=== PATIENT | female | born 1990 | race Caucasian/White ===

== ENCOUNTER 2021-12-20 15:14 | Emergency (ER) | payer OTHER, SELFPAY ==
[2021-12-20 15:16] VITALS: BP 119/54; PULSE 119; RESP 16; TEMP 36.3; O2SAT 98
--- NOTE | 2021-12-20 15:34 | ED.FEMALEGU ---
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 Patient states that she noted a small amount of pink/light red blood on the toilet tissue after she wiped and in her underwear. Denies abdominal pain, fevers, syncope. Patient has had 2 ultrasounds to confirm IUP, most recently at the end of November. Her has been uncomplicated thus far she follows with Dr. Villanueva. Related Data Home Medications Medication Instructions Recorded Confirmed escitalopram oxalate 10 mg tablet 10 mg PO DAILY 10/13/21 11/10/21 (Lexapro) Allergies Allergy/AdvReac Type Severity Reaction Status Date / Time No Known Allergies Allergy Verified 12/20/21 15:19 Review of Systems Review of Systems: Gen: Denies fevers or chills Eyes: Denies eye pain or visual change ENT: Denies congestion Respiratory: Denies shortness of breath or cough CV: Denies chest pain or palpitations GI: Denies abdominal pain nausea, emesis or diarrhea : denies burning, urgency, frequency or hematuria Musculoskeletal: Denies back pain or muscle pain Neuro: Denies numbness, tingling, weakness or focal weakness Skin: Denies rash Except as documented, all other systems reviewed and negative [facility] Past Medical History Medical History Healthy adult Surgical History Surgical History No pertinent past surgical history Family History Family History Other Graves' disease Malignant tumor of ovary Social History Social History (Updated 10/13/21 @ 15:47 by Shannon Gonzalez MA) Smoking status: Current some day smoker Tobacco type: e-cigarettes/vaping Alcohol intake: never Substance use: never Substance use type: does not use 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 Gender identity (if verbalized by the patient): Female Sexual Orientation (if Verbalized by the Patient): Straight or Heterosexual Exam Narrative: Gen: Alert, oriented Eyes: EOMI, no icterus Pulm: Respirations even and unlabored, symmetric thorax expansion, no audible stridor or visible cyanosis CV: Regular rate per telemetry GI: No distension, no voluntary/involuntary guarding : Patient refusing pelvic exam Neuro: AOx4, moves all extremities without apparent difficulty or weakness, follows commands Skin: No jaundice, no visible bruising, rashes, lesions or wounds on exposed skin Psych: Normal mood/affect, insight/judgement good, adequate fund of knowledge, recent/remote memory intact Course Course Emergency Course: heart tones detected at 168 bpm, movement and heart tones detected on [id number]-im-nxid ultrasound at bedside Vital Signs Vital signs: Vital Signs Temperature 97.4 F L 12/20/21 15:16 Pulse Rate 119 H 12/20/21 15:16 Respiratory Rate 16 12/20/21 15:16 Blood Pressure 119/54 L 12/20/21 15:16 Pulse Oximetry 98 12/20/21 15:16 Oxygen Delivery Room Air 12/20/21 15:16 Temperature 97.4 F L 12/20/21 15:16 Pulse Rate 119 H 12/20/21 15:16 Respiratory Rate 16 12/20/21 15:16 Blood Pressure 119/54 L 12/20/21 15:16 Pulse Oximetry 98 12/20/21 15:16 Oxygen Delivery Room Air 12/20/21 15:16 MDM - Female Genitourinary MDM Narrative Medical decision making narrative: 31-year-old female who is currently 18 weeks here for evaluation of vaginal spotting for the past 2 days. Patient is tachycardic, likely due to anxiety, vital signs otherwise normal. Patient has had an US to confirm single IUP; low concern for ectopic. Patient states she only presented to hear heart tones
--- NOTE | 2021-12-20 15:43 | PC.NURSE ---
OB NOTIFIED OF NEED FOR TOCO MONITORING AND WILL COME OVER SARA
--- NOTE | 2021-12-20 16:37 | PC.NURSE ---
patient refuses labs and pelvic exam
== END 2021-12-20 17:06 | disposition home or self-care (01) ==
PROVIDERS: Emergency Provider Emergency Medicine; PCP Physician Assistant
DX: O20.9 Hemorrhage in early pregnancy, unspecified (principal); O99.332 Smoking (tobacco) complicating pregnancy, second trimester; F17.290 Nicotine dependence, other tobacco product, uncomplicated; Z3A.18 18 weeks gestation of pregnancy
CPT/HCPCS: 99284

== ENCOUNTER 2022-02-02 15:03 | Outpatient (CLI) | payer OTHER, SELFPAY ==
[2022-02-02 15:24] LABS: Basophils Absolute Auto 0.1 K/mm3 (0.0-0.1); Basophils Percent Auto 0.4 % (0.2-1.2); Eosinophils Absolute Auto 0.1 K/mm3 (0-0.3); Eosinophils Percent Auto 0.6 % (0-4.4); Hematocrit 34.1 % (37.0-47.0); Hemoglobin 10.8 g/dL (12.0-15.0); Immature Granulocyte Absolute 0.54 K/mm3 (0.00-0.031); Immature Granulocyte Percent A 4.3 % (0-0.5); Lymphocytes Absolute Auto 1.49 K/mm3 (0.9-3.2); Lymphocytes Percent Auto 11.7 % (18.3-44.2); Mean Corpuscular HGB Conc 31.7 g/dl (32-36); Mean Corpuscular Hemoglobin 30.8 pg (26-34); Mean Corpuscular Volume 97.2 fl (80-100); Mean Platelet Volume 10.3 fl (7.4-10.4); Monocytes Absolute Auto 0.8 K/mm3 (0.1-0.6); Monocytes Percent Auto 6.1 % (2.6-8.5); Neutrophils Absolute Auto 9.8 K/mm3 (1.3-6.7); Neutrophils Percent Auto 76.9 % (45.5-73.1); Platelet Count Result 261 k/mm3 (150-375); Red Blood Count 3.51 M/mm3 (4.2-5.4); Red Cell Distribution Width 14.9 % (11.5-14.5); White Blood Count 12.7 K/mm3 (4.5-10.0)
[2022-02-02 15:51] LABS: Iron 79 ug/dL (37-170)
[2022-02-02 16:00] LABS: Percent Iron Saturation 16 % (20-50)
== END 2022-02-02 15:04 | disposition home or self-care (01) ==
LOC: ANHLAB 15:04
PROVIDERS: PCP Physician Assistant; Visit Provider Obstetrics & Gynecology
DX: R42 Dizziness and giddiness (principal)
CPT/HCPCS: 36415; 82728; 83540; 83550; 85025

== ENCOUNTER 2022-03-05 10:46 | Outpatient (CLI) | payer OTHER, SELFPAY ==
[2022-03-05 12:27] LABS: Basophils Absolute Auto 0.1 K/mm3 (0.0-0.1); Basophils Percent Auto 0.4 % (0.2-1.2); Eosinophils Absolute Auto 0.1 K/mm3 (0-0.3); Eosinophils Percent Auto 0.7 % (0-4.4); Hematocrit 32.6 % (37.0-47.0); Hemoglobin 10.5 g/dL (12.0-15.0); Immature Granulocyte Absolute 0.76 K/mm3 (0.00-0.031); Immature Granulocyte Percent A 5.6 % (0-0.5); Lymphocytes Absolute Auto 1.33 K/mm3 (0.9-3.2); Lymphocytes Percent Auto 9.7 % (18.3-44.2); Mean Corpuscular HGB Conc 32.2 g/dl (32-36); Mean Corpuscular Hemoglobin 31.3 pg (26-34); Mean Corpuscular Volume 97.3 fl (80-100); Mean Platelet Volume 10.5 fl (7.4-10.4); Monocytes Absolute Auto 0.6 K/mm3 (0.1-0.6); Monocytes Percent Auto 4.6 % (2.6-8.5); Neutrophils Absolute Auto 10.8 K/mm3 (1.3-6.7); Platelet Count Result 240 k/mm3 (150-375); Red Blood Count 3.35 M/mm3 (4.2-5.4); Red Cell Distribution Width 15.4 % (11.5-14.5); White Blood Count 13.7 K/mm3 (4.5-10.0)
[2022-03-05 12:37] LABS: Glucose 1 Hour PP 50gm Dose 181 mg/dL
[2022-03-05 13:15] LABS: HIV 1/2 Ab P24 Ag Result Negative (Negative)
[2022-03-05 13:43] LABS: Rubella IgG Antibody 16.2 IU/ML
== END 2022-03-05 10:47 | disposition home or self-care (01) ==
LOC: ANHLAB 10:49
PROVIDERS: PCP Physician Assistant; Visit Provider Obstetrics & Gynecology
DX: Z34.90 Encounter for supervision of normal pregnancy, unspecified, unspecified trimester (principal); N94.89 Other specified conditions associated with female genital organs and menstrual cycle; Z3A.00 Weeks of gestation of pregnancy not specified
CPT/HCPCS: 36415; 82947; 85025; 86703; 86762; 86787; 87086; 87088; G0432

== ENCOUNTER 2022-03-10 08:01 | Outpatient (CLI) | payer OTHER, SELFPAY ==
[2022-03-10 08:35] LABS: Glucose Fasting Gestational 100 mg/dL (>/=95)
[2022-03-10 10:13] LABS: Glucose 1 Hour Gest 206 mg/dL (>/=180)
[2022-03-10 13:11] LABS: Glucose 2 Hour Gest 180 mg/dL (>/= 155)
[2022-03-10 13:19] LABS: Glucose 3 Hour Gest 139 mg/dL (>/=140)
== END 2022-03-10 08:02 | disposition home or self-care (01) ==
LOC: ANHLAB 08:03
PROVIDERS: PCP Physician Assistant; Visit Provider Obstetrics & Gynecology
DX: R73.09 Other abnormal glucose (principal)
CPT/HCPCS: 36415; 82951; 82952

== ENCOUNTER 2022-04-24 11:38 | Observation (INO) | payer OTHER, SELFPAY ==
[2022-04-24] VITALS (33 sets, daily range): BP systolic 114; BP diastolic 79; PULSE 88–121; RESP 20; O2SAT 97–100; BMI 34.7
--- NOTE | 2022-04-24 12:30 | OBADM ---
This patient, Barbara Diggs, admitted to the OB room Labor/Delivery/Recovery 119 for observation. Patient/family oriented to hospital policies and general routines including ID bracelet, bed and alarms, visiting hours, pain management, procedures, bathroom and other care routines, personal items, smoking policy, room service/diet, and visiting hours. Patient/Family are encouraged to report perceived risks to care and to ask questions if they do not understand what they are told or what they should do.
--- NOTE | 2022-04-24 12:50 | PC.NURSE ---
Dr. Villanueva updated on reactive FHR tracing so far with change in baseline from 150's to 130's and frequent uterine irritability at 35 6/7 wks. states pt has polyhydramnios also. OK to let pt eat.
[2022-04-24 16:09] LABS: Add Urine Microscopic? YES; Appearance Urine Cloudy (Clear); Bacteria Urine 4+ /hpf; Bilirubin Urine Negative (Negative); Blood Urine Negative (Negative); Color Urine Yellow (Yellow); Glucose Urine UA Negative (Negative); Ketones Urine 2+ mg/dL (Negative); Leukocyte Esterase Ur Trace LEU/UL (Negative); Mucus Urine Rare /lpf; Nitrate Urine Negative (Negative); Protein Urine 1+ mg/dL (Negative); Specific Grav Ur 1.012 (1.001-1.035); Squamous Epithelial Cell Urine Rare /hpf (Few); Urobilinogen Urine Negative mg/dL (<2.0)
--- NOTE | 2022-04-27 12:28 | PM.OBTRLD ---
OB - Triage/Final Diagnosis Visit Information Comments/Additional reasons for admission: I have assessed the risk for this patient, Barbara Diggs, and determined that she would benefit from observation care. Evaluation Laboratory results: Laboratory Tests 04/24/22 15:55 Urine Color Yellow Urine Appearance Cloudy H Urine pH 6.0 Ur Specific [place] 1.012 Urine Protein 1+ H Urine Glucose (UA) Negative Urine Ketones 2+ H Ur Blood (Man) Negative Urine Nitrate Negative Urine Bilirubin Negative Urine Urobilinogen Negative Leukocyte Esterase Rfl Trace H Urine RBC 3-5 H Urine WBC 4-6 H Ur Squamous Epith Cells Rare Urine Bacteria 4+ H Urine Mucus Rare Final Diagnosis (1) heart deceleration: Status: Acute
== END 2022-04-24 16:33 | disposition home or self-care (01) ==
PROVIDERS: Admitting Provider Obstetrics & Gynecology; PCP Physician Assistant; Visit Provider Obstetrics & Gynecology
DX: O36.8390 Maternal care for abnormalities of the fetal heart rate or rhythm, unspecified trimester, not applicable or unspecified (principal); Z3A.00 Weeks of gestation of pregnancy not specified
CPT/HCPCS: 81001; G0378; G0379

== ENCOUNTER 2022-05-12 08:35 | Inpatient (IN) | payer OTHER, SELFPAY ==
[2022-05-12] VITALS (118 sets, daily range): BP systolic 59–139; BP diastolic 42–122; PULSE 72–154; TEMP 36.2–36.7; O2SAT 93–100; BMI 39.2
[2022-05-12 09:45] LABS: Basophils Percent Auto 0.4 % (0.2-1.2); Eosinophils Absolute Auto 0.1 K/mm3 (0-0.3); Eosinophils Percent Auto 0.7 % (0-4.4); Hematocrit 36.3 % (37.0-47.0); Hemoglobin 11.6 g/dL (12.0-15.0); Immature Granulocyte Absolute 0.43 K/mm3 (0.00-0.031); Immature Granulocyte Percent A 4.5 % (0-0.5); Lymphocytes Absolute Auto 1.27 K/mm3 (0.9-3.2); Lymphocytes Percent Auto 13.2 % (18.3-44.2); Mean Corpuscular Hemoglobin 28.4 pg (26-34); Mean Corpuscular Volume 88.8 fl (80-100); Mean Platelet Volume 12.1 fl (7.4-10.4); Monocytes Absolute Auto 0.6 K/mm3 (0.1-0.6); Neutrophils Absolute Auto 7.3 K/mm3 (1.3-6.7); Neutrophils Percent Auto 75.2 % (45.5-73.1); Nucleated Red Blood Cells Perc 0.2 % (0.0-0.2); Platelet Count Result 222 k/mm3 (150-375); Red Blood Count 4.09 M/mm3 (4.2-5.4); Red Cell Distribution Width 15.1 % (11.5-14.5); White Blood Count 9.7 K/mm3 (4.5-10.0)
--- NOTE | 2022-05-12 10:15 | LDADM ---
This patient, Barbara Diggs, was admitted to Labor/Delivery/Recovery 107 on 05/12/22 at 08:35. Plans for labor, pain management and were discussed with patient. Patient/family oriented to hospital policies and general routines including ID bracelet, bed and alarms, visiting hours, pain management, procedures, bathroom and other care routines, personal items, smoking policy, room service/diet and guest tray routines, infant security routines, and visiting hours. Patient/Family are encouraged to report perceived risks to care and to ask questions if they do not understand what they are told or what they should do. See OBIX for further documentation.
[2022-05-12] MEDS: miSOPROStol 25 MCG TABLET VAGINAL (10:41)
--- NOTE | 2022-05-12 12:00 | WPDOBADMIT ---
Obstetrics - Admit Note Admission Note: record reviewed. No pertinent additions to the history and/or any subsequent changes in the physical findings that are not consistent with the expected course of the were found. Additions to the history and/or subsequent changes in the physical findings follow. None. Lily is a 31yo @ 38.3wks admitted with SROM @ 0730, clear on 05/12/22 Her is complicated by: - Anxiety on lexapro - Hard of hearing -? COVID positive (on baby aspirin, serial ultrasound for growth) - A2GDM; on insulin, doing ANT w/ MFM - Mild polyhydramnios Cat 1 tracing on admission, irregular ctx's Cervix: /-3 grossly ruptured; clear Misoprostol 25mcg x1; if milagros too frequently, will then start pitocin augmentation GBS negative Anesthesia consult PRN pain Continuous monitoring; currently reassuring
[2022-05-12 14:19] LABS: Glucose Point of Care 90 mg/dl (65-105)
[2022-05-12] MEDS: LACTATED RINGERS 1,000 ML 125 ML IV CONT ×2 (15:03→17:07)
[2022-05-12] MEDS: OXYTOCIN 30 UNITS/NS 500 ML 30 UNITS/500 ML BAG IV CONT (15:03)
[2022-05-12 16:29] LABS: Rapid Plasma Reagin Non-Reactive (NonReactive)
[2022-05-12 22:31] LABS: Glucose Point of Care 78 mg/dl (65-105)
[2022-05-12 22:31] LABS: Glucose Point of Care 90 mg/dl (65-105)
[2022-05-12] MEDS: ONDANSETRON INJ 4 MG/2 ML VIAL IV PUSH ×2 (22:42)
[2022-05-13] VITALS (87 sets, daily range): BP systolic 90–164; BP diastolic 64–104; PULSE 53–188; RESP 16–20; TEMP 36.6–38.8; O2SAT 71–100
[2022-05-13 00:29] LABS: Glucose Point of Care 83 mg/dl (65-105)
[2022-05-13] MEDS: diphenhydrAMINE HCl INJ 50 MG/ML VIAL 25 MG IV PUSH (00:55)
[2022-05-13] MEDS: AMPICILLIN 2 GM/NS 100 ML 2 GM/100 ML BAG IVPB ×4 (01:31→20:33)
[2022-05-13] MEDS: METHYLERGONOVINE MALEATE 0.2 MG/ML VIAL (02:34)
[2022-05-13] MEDS: miSOPROStol 200 MCG TABLET 800 MCG (02:37)
--- NOTE | 2022-05-13 03:00 | P.PCNOB_ITS ---
OB - Delivery Note Procedure Delivery date: 05/13/22 Events: Gestational Diabetes, Polyhydramnios and Other (SROM) Delivery augmentation: Pitocin Delivery monitor: External FHT and External Uterine Route of delivery: Laceration Description: Perineal - 1st Degree Delivery repair: vicryl Specimen: Yes (placenta) Quantitative Blood Loss (ml): 450 Anesthesia type: Epidural Disposition: Floor Baby Date of : 05/13/22 Time of : 02:25 Weeks of gestation at delivery: 38 (.4) gender: Male Weight (pounds): 7 Weight (ounces): 2 presentation: compound (right hand by face) position: Right Occiput Anterior Placenta delivery description: Expressed Cord Vessel Description: 3 Vessels and Clamped/Cut Narrative: Barbara progressed to complete dilation with strong desire to push. She pushed for approximately 45 minutes with good maternal effort. She delivered the head over intact perineum. He was delivered compound with the right hand up by his face. He was immediately placed skin to skin but noted to have poor tone and color therefore the umbilical cord was immediately clamped and cut and he was taken by the pediatric nurse to the warmer. A segment of the cord was collected for cord gases. The remaining cord blood was collected for typing. With Pitocin running and gentle downward traction on the cord, the luz lacenta delivered without complications. Brisk bleeding was noted and bimanual massage revealed uterine atony. Methergine 0.2mg IM was given which resolved the atony. She was examined and a first-degree perineal laceration was noted. The laceration was repaired using 2-0 Vicryl in a [id number]-[id number] pattern. Minimal bleeding and good uterine tone remained. Misoprostol 800 mcg was placed rectally to further prevent atony. Sponge, lap, instrument, and needle counts were correct at the end the procedure. Apgars pending. AMG Delivery Billing Delivery Delivery: Delivery Charge
[2022-05-13] MEDS: OXYTOCIN 30 UNITS/NS 500 ML 30 UNITS/500 ML BAG 125 UNITS (03:23)
[2022-05-13] MEDS: IBUPROFEN 600 MG TABLET PO ×2 (03:56→23:51)
[2022-05-13] MEDS: WITCH HAZEL 40 PADS 1 PAD TOPICAL (04:50)
[2022-05-13] MEDS: BENZOCAINE 20% AER SPR (*SP) 56 GM CAN 1 SPRAY TOPICAL (04:50)
--- NOTE | 2022-05-13 05:46 | PC.NURSE ---
Patient transferred to post room #291 per wheelchair from labor and delivery. Support person present. Oriented to unit, room, information board, rooming in, admission packet and security measures. Patient verbalizes understanding.
[2022-05-13] MEDS: OXYTOCIN 30 UNITS/NS 500 ML 30 UNITS/500 ML BAG 125 UNITS IV CONT (06:40)
[2022-05-13 07:40] LABS: Alanine Aminotransferase 39 U/L (6-35); Alkaline Phosphatase 198 U/L (38-126); Anion Gap 12 mmol/L (8-16); Aspartate Amino Transferase 42 U/L (14-36); Bilirubin,Total 0.4 mg/dL (0.2-1.3); Blood Urea Nitrogen 14 mg/dL (7-17); Calcium 8.1 mg/dL (8.4-10.2); Carbon Dioxide 17 mmol/L (22-30); Chloride 104 mmol/L (98-107); Estimated Glomerular Filt Rate > 60; Glucose 123 mg/dL (65-110); Potassium 3.3 mmol/L (3.4-5.0); Sodium 133 mmol/L (137-145)
[2022-05-13] MEDS: DOCUSATE SODIUM 100 MG CAPSULE PO ×2 (08:17→16:55)
[2022-05-13] MEDS: MULTIVIT/MIN/PREN/FOL AC/IRON TABLET 1 TAB PO (08:17)
[2022-05-13] MEDS: ACETAMINOPHEN 325 MG TABLET 650 MG PO (08:17)
[2022-05-13] MEDS: PHARMACIST COMMUNICATION ORDER 1 EACH XX (08:39)
--- NOTE | 2022-05-13 13:51 | PC.NURSE ---
[id number] Introductions were made, then consulted with patient to assess needs related to preparing to feed her infant. Mother led the conversation with her?plans to feed?her infant. Mother's intent to feed ranges from bottle with formula, breast milk with a bottle, breast pumping for milk production, whatever works best and her?experience so far. Resources provided for inpatient and outpatient services using a resource guide and mom/baby guide. Mother voiced understanding of information and requests assistance with pumping. Breast pump provided due to separation from . Instructions given on cleaning, care, usage, that there should be no pain, pumping schedule for milk production, collection, and storage of human milk. Mother is encouraged to record pumping schedule on the feeding sheet. Patient was assessed for correct placement, flange size (given the smallest size we have 21 mm and encouraged mother to order a 19 mm as measurement indicates), to pump for comfort, no pain and nipple stretching/stimulation for adequate milk production every 3 hours (8 times in 24 hours) 1-2 times at night. Mother voiced understanding of the education shared along with mom and baby guide for additional resource information. Reported to the primary RN.
[2022-05-14 02:45] VITALS: BP 111/81; PULSE 70; RESP 16; TEMP 36.6
[2022-05-14] MEDS: AMPICILLIN 2 GM/NS 100 ML 2 GM/100 ML BAG IVPB (02:50)
[2022-05-14] MEDS: SIMETHICONE 80 MG TAB.CHEW PO (02:51)
[2022-05-14 05:30] LABS: Hematocrit 34.4 % (37.0-47.0); Hemoglobin 10.7 g/dL (12.0-15.0)
--- NOTE | 2022-05-14 07:44 | P.PNOB_ITS ---
OB - PN: Subj Subjective Date/time seen: 05/14/22 07:07 Narrative: PPD#1 Barbara reports doing well today. Her bleeding is light. Her pain is controlled. She is tolerating regular diet, voiding, passing gas, and ambulating without issues. She is breast feeding. She would like her son circumcised. She does reports some bothersome lower extremity swelling. She does report some anxiety and feels like she had panic attacks the last two nights. She has completed her 24 hours of antibiotics and been afebrile. OB - PN: Obj Data Labs CBC & Chem 7: 05/14/22 03:39 05/13/22 07:18 Labs: Laboratory Results - last 24 hr 05/13/22 05/14/22 07:18 03:39 Hgb 10.7 L Hct 34.4 L Sodium 133 L Potassium 3.3 L Chloride 104 Carbon Dioxide 17 L Anion Gap 12 BUN 14 Creatinine 1.00 Estim Creat Clear Calc Not Reportable Estimated GFR > 60 Glucose 123 H Calcium 8.1 L Total Bilirubin 0.4 AST 42 H ALT 39 H Alkaline Phosphatase 198 H Total Protein 6.0 L Albumin 3.0 L OB - PN A/P Assessment and Plan (1) Normal vaginal delivery of first : Code(s): O80 - Encounter for full-term uncomplicated delivery Status: Acute (2) Chorioamnionitis: Code(s): O41.1290 - Chorioamnionitis, unspecified trimester, not applicable or unspecified Status: Acute Plan day: 1 Plan: routine care Comments: - s/p 24 hours of amp/gent; afebrile - repeat labs tomorrow - likely discharge home tomorrow Time Spent With Patient Time: Total time spent is greater than 50% in coordination of care (as documented) at patient's floor/unit and/or counseling patient: Review of Systems Constitutional: Constitutional: Denies chills, Denies fever(s) and Denies headache(s) Eyes: Eyes: Denies change in vision ENT: Denies dizziness and Denies headache(s) Cardiovascular: Cardiovascular: Denies chest pain, Denies palpitations and Denies dyspnea Respiratory: Respiratory: Denies cough and Denies dyspnea Gastrointestinal: Gastrointestinal: Denies nausea and Denies vomiting Neurologic: Denies dizziness and Denies headache(s) Endocrine: Endocrine: Denies palpitations Exam Const: General: cooperative, comfortable and no acute distress Aren entation/consciousness: patient oriented x3 Resp: Effort & Inspection: normal respiratory effort Auscultation: clear to auscultation bilaterally Cardio: Rate: regular rate GI: Inspection: non-distended GI Palp: No abdominal tenderness and Yes Soft to palpation Auscultation: normal bowel sounds : Other: fundus firm Skin: General skin exam: normal color Neuro: General: patient oriented x3 Extrem: General: normal to inspection Psych: Appearance: grossly normal Affect: normal affect Attitude: co operative
[2022-05-14 08:25] VITALS: BP 109/81; PULSE 78; RESP 18; TEMP 36.4; O2SAT 100
[2022-05-14] MEDS: DOCUSATE SODIUM 100 MG CAPSULE PO ×2 (09:29→16:57)
[2022-05-14] MEDS: MULTIVIT/MIN/PREN/FOL AC/IRON TABLET 1 TAB PO (09:29)
[2022-05-14] MEDS: ESCITALOPRAM OXALATE 10 MG TABLET PO (09:29)
[2022-05-14] MEDS: IBUPROFEN 600 MG TABLET PO ×2 (09:29→16:59)
--- NOTE | 2022-05-14 10:47 | WPDANLDPN2 ---
Anes-Prog Note L&D Date/Time: 05/14/22 10:47 Comfortable throughout: labor and delivery Neuraxial method: epidural Epidural/Spinal procedure site: clean & non-tender Neuro status: Neuro function grossly intact. Cardiovascular status: normal Respiratory status: normal Airway patency: baseline Mental status: baseline Post-Op hydration status: normal Vital Signs: Last Vital Signs Temp 36.4 C 05/14/22 08:25 Pulse 78 05/14/22 08:25 Resp 18 05/14/22 08:25 BP 109/81 05/14/22 08:25 Pulse Ox 100 05/14/22 08:25 O2 Del Method Room Air 05/14/22 08:30 Pain score (VAS): 07/21 I/O: Intake & Output 05/13/22 05/14/22 05/14/22 23:59 07:59 15:59 Intake Total 52.25 100 Balance 52.25 100 Post-procedural complaints: none Patient feedback: Patient satisfied with anesthetic care.
[2022-05-14 19:50] VITALS: BP 113/76; PULSE 81; RESP 16; TEMP 36.9
[2022-05-15 05:32] LABS: Basophils Absolute Auto 0.1 K/mm3 (0.0-0.1); Basophils Percent Auto 0.4 % (0.2-1.2); Eosinophils Absolute Auto 0.1 K/mm3 (0-0.3); Hematocrit 32.7 % (37.0-47.0); Hemoglobin 10.1 g/dL (12.0-15.0); Immature Granulocyte Absolute 0.34 K/mm3 (0.00-0.031); Immature Granulocyte Percent A 2.7 % (0-0.5); Lymphocytes Absolute Auto 1.65 K/mm3 (0.9-3.2); Mean Corpuscular HGB Conc 30.9 g/dl (32-36); Mean Corpuscular Hemoglobin 27.4 pg (26-34); Mean Corpuscular Volume 88.9 fl (80-100); Mean Platelet Volume 11.8 fl (7.4-10.4); Monocytes Absolute Auto 0.6 K/mm3 (0.1-0.6); Monocytes Percent Auto 4.7 % (2.6-8.5); Neutrophils Absolute Auto 9.9 K/mm3 (1.3-6.7); Neutrophils Percent Auto 78.2 % (45.5-73.1); Platelet Count Result 224 k/mm3 (150-375); Red Blood Count 3.68 M/mm3 (4.2-5.4); Red Cell Distribution Width 15.1 % (11.5-14.5); White Blood Count 12.7 K/mm3 (4.5-10.0)
[2022-05-15 05:41] LABS: Alanine Aminotransferase 35 U/L (6-35); Alkaline Phosphatase 150 U/L (38-126); Anion Gap 7 mmol/L (8-16); Aspartate Amino Transferase 38 U/L (14-36); Bilirubin,Total 0.4 mg/dL (0.2-1.3); Blood Urea Nitrogen 9 mg/dL (7-17); Calcium 8.6 mg/dL (8.4-10.2); Carbon Dioxide 25 mmol/L (22-30); Chloride 106 mmol/L (98-107); Estimated Glomerular Filt Rate > 60; Glucose 75 mg/dL (65-110); Potassium 3.6 mmol/L (3.4-5.0); Sodium 138 mmol/L (137-145)
[2022-05-15] MEDS: MULTIVIT/MIN/PREN/FOL AC/IRON TABLET 1 TAB PO (08:22)
[2022-05-15] MEDS: IBUPROFEN 600 MG TABLET PO (08:23)
[2022-05-15] MEDS: ESCITALOPRAM OXALATE 10 MG TABLET PO (08:23)
[2022-05-15] MEDS: DOCUSATE SODIUM 100 MG CAPSULE PO (08:23)
[2022-05-15] MEDS: TETANUS,DIPHTHERIA,AC PERTUSSIS ADULT (0.5 ML) BOOSTRIX IM (08:24)
[2022-05-15 08:25] VITALS: BP 128/69; PULSE 100; RESP 18; TEMP 36.9; O2SAT 99
--- NOTE | 2022-05-15 08:50 | PM.OBDSVD ---
DS: Admitting Diagnosis Discharge Date 05/15/22 Admitting Diagnosis SROM Polyhydramnios A2GDM DS: Discharge Diagnosis Discharge Diagnosis (1) Normal vaginal delivery of first : Code(s): O80 - Encounter for full-term uncomplicated delivery Status: Acute (2) Chorioamnionitis: Qualifiers: Fetus number: single or unspecified fetus Trimester: third trimester Qualified Code(s): O41.1230 - Chorioamnionitis, third trimester, not applicable or unspecified Code(s): O41.1290 - Chorioamnionitis, unspecified trimester, not applicable or unspecified Status: Acute (3) Gestational diabetes mellitus (GDM): Qualifiers: Gestational diabetes mellitus control: insulin-controlled Trimester: third trimester Qualified Code(s): O24.414 - Gestational diabetes mellitus in , insulin controlled Code(s): O24.419 - Gestational diabetes mellitus in , unspecified control Status: Acute OB - DS: Summary OB Procedures : NST and Ultrasound OB Procedures Intrapartum: Spontaneous Vag Delivery OB Procedures: : None Peripartum Data Delivery Method: Natural Vaginal Laceration Description: Perineal - 1st Degree complications: none 1: Gender: Male Disposition of : home Status at Discharge Functional status at discharge: independent ambulation Overall status at discharge: patient is back to baseline Time Spent with Patient Time attestation: Total time spent providing and/or coordinating discharge services: Time spent: Less than 30 minutes Exam Const: General: cooperative, comfortable, no acute distress and obese Orientation/consciousness: patient oriented x3 Resp: Effort & Inspection: normal respiratory effort Auscultation: clear to auscultation bilaterally Cardio: Rate: regular rate GI: Inspection: non-distended GI Palp: No abdominal tenderness and Yes Soft to palpation Auscultation: normal bowel sounds : Other: fundus firm Skin: General skin exam: normal color Neuro: General: patient oriented x3 Extrem: General: normal to inspection Psych: Appearance: grossly normal Affect: normal affect Attitude: cooperative DS: Data Data Completed and Pending Pending studies at discharge: Pending at discharge 05/13/22 02:30 Surgical [PTH] Routine Labs on day of discharge: Labs from last 24 hours 05/15/22 05/15/22 05:16 05:16 WBC 12.7 H RBC 3.68 L Hgb 10.1 L Hct 32.7 L MCV 88.9 MCH 27.4 MCHC 30.9 L RDW 15.1 H Plt Count 224 MPV 11.8 H Immature Gran % (Auto) 2.7 H Neut % (Auto) 78.2 H Lymph % (Auto) 13.0 L [place] % (Auto) 4.7 Eos % (Auto) 1.0 Baso % (Auto) 0.4 Lymph # (Auto) 1.65 [place] # (Auto) 0.6 Eos # (Auto) 0.1 Baso # (Auto) 0.1 Abs Immat Gran (auto) 0.34 H Absolute Neuts (auto) 9.9 H Absolute Nucleated RBC 0.0 Nucleated RBC % 0.0 Sodium 138 Potassium 3.6 Chloride 106 Carbon Dioxide 25 Anion Gap 7 L BUN 9 D Creatinine 0.60 L Estim Creat Clear Calc Not Reportable Estimated GFR > 60 Glucose 75 Calcium 8.6 Total Bilirubin 0.4 AST 38 H ALT 35 Alkaline Phosphatase 150 H Total Protein 6.0 L Albumin 3.0 L Discharge Plan Discharge Attending physician on discharge: Diandra Villanueva Discharging Clinician: Diandra Villanueva Anticipated Discharge Date/Time: 05/15/22 11:00 Patient Disposition: Home, Self-Care Activity: pelvic rest Diet: regular Discharge Instructions: Education: Mom and Baby Guide Given to: Mother Follow-Up: Call your delivering provider's office for an appointment to be seen in: 4 Weeks Mom and baby should come to the [facility] for the follow-up appointment. Appointment Date/Time: May 16, 2022 at 10:00 am What to expect at your follow-up visit: Physical Assessment Call [phone] if you are unable to keep
--- NOTE | 2022-05-15 10:28 | PC.NURSE ---
Patient viewed the discharge video Mother & Baby Care, The First Two Weeks . Patient was given the opportunity and encouraged to ask questions. Patient verbalized understanding of information shared and has been given the mother/baby guide for home reference.
--- NOTE | 2022-05-15 11:53 | PC.NURSE ---
Report received that mother is bottle feeding with similac and pumping. Mother states she wants to breastfeed and is offered assistance. Mother instructed to call for assistance.
[2022-05-16 09:44] VITALS: BP 120/87; PULSE 87; RESP 20; TEMP 37.2; O2SAT 99
== END 2022-05-15 12:53 | disposition home or self-care (01) | DRG 805 ==
LOC: ANHLDR 08:55 → ANHOB2 05-13 05:48
PROVIDERS: Admitting Provider Obstetrics & Gynecology; PCP Physician Assistant; Visit Provider Obstetrics & Gynecology
DX: O24.424 Gestational diabetes mellitus in childbirth, insulin controlled (principal); O41.1230 Chorioamnionitis, third trimester, not applicable or unspecified; Z37.0 Single live birth; Z3A.38 38 weeks gestation of pregnancy; Z23 Encounter for immunization; O36.8330 Maternal care for abnormalities of the fetal heart rate or rhythm, third trimester, not applicable or unspecified; O70.0 First degree perineal laceration during delivery; O99.344 Other mental disorders complicating childbirth; F41.9 Anxiety disorder, unspecified; O40.3XX0 Polyhydramnios, third trimester, not applicable or unspecified; O32.6XX0 Maternal care for compound presentation, not applicable or unspecified
CPT/HCPCS: 36415; 80053; 82948; 85014; 85018; 85025; 86592; 86850; 86900; 86901; 88307; 90471; 90686; 90715; A9270; G0008; J0290; J1200; J1580; J2210; J2405; J2590; J2795; J7120

== ENCOUNTER 2022-09-07 08:13 | Outpatient (CLI) | payer OTHER, SELFPAY ==
[2022-09-07 11:08] LABS: Basophils Percent Auto 0.2 % (0.2-1.2); Eosinophils Absolute Auto 0.1 K/mm3 (0-0.3); Eosinophils Percent Auto 1.2 % (0-4.4); Hematocrit 40.5 % (37.0-47.0); Hemoglobin 12.9 g/dL (12.0-15.0); Immature Granulocyte Absolute 0.02 K/mm3 (0.00-0.031); Immature Granulocyte Percent A 0.4 % (0-0.5); Lymphocytes Absolute Auto 1.26 K/mm3 (0.9-3.2); Lymphocytes Percent Auto 25.4 % (18.3-44.2); Mean Corpuscular HGB Conc 31.9 g/dl (32-36); Mean Corpuscular Hemoglobin 28.6 pg (26-34); Mean Corpuscular Volume 89.8 fl (80-100); Mean Platelet Volume 10.7 fl (7.4-10.4); Monocytes Absolute Auto 0.4 K/mm3 (0.1-0.6); Monocytes Percent Auto 7.2 % (2.6-8.5); Neutrophils Absolute Auto 3.3 K/mm3 (1.3-6.7); Neutrophils Percent Auto 65.6 % (45.5-73.1); Platelet Count Result 237 k/mm3 (150-375); Red Blood Count 4.51 M/mm3 (4.2-5.4); Red Cell Distribution Width 15.7 % (11.5-14.5)
[2022-09-07 11:19] LABS: Alanine Aminotransferase 19 U/L (6-35); Albumin Level 4.6 g/dL (3.5-5.1); Alkaline Phosphatase 59 U/L (38-126); Anion Gap 7 mmol/L (8-16); Aspartate Amino Transferase 21 U/L (14-36); Bilirubin,Total 0.5 mg/dL (0.2-1.3); Blood Urea Nitrogen 12 mg/dL (7-17); Calcium 9.2 mg/dL (8.4-10.2); Carbon Dioxide 26 mmol/L (22-30); Chloride 100 mmol/L (98-107); Estimated Glomerular Filt Rate > 60; Glucose 95 mg/dL (65-110); Glucose 2 Hour PP 96 mg/dL (>=155); Potassium 3.8 mmol/L (3.4-5.0); Sodium 133 mmol/L (137-145)
[2022-09-07 11:48] LABS: Thyroid Stimulating Hormone 0.807 uIU/mL (0.465-4.680)
[2022-09-07 16:20] LABS: Hemoglobin A1C 5.1 % (<5.7)
[2022-09-07 16:58] LABS: Iron 74 ug/dL (37-170)
[2022-09-07 17:32] LABS: Folic Acid 6.1 ng/mL (2.76->20)
[2022-09-07 21:00] LABS: T4 Thyroxine 7.59 ug/dL (5.53-11.0)
== END 2022-09-07 08:14 | disposition home or self-care (01) ==
PROVIDERS: PCP Physician Assistant; Referring Provider Physician Assistant; Visit Provider Obstetrics & Gynecology
DX: Z86.32 Personal history of gestational diabetes (principal); Z79.899 Other long term (current) drug therapy
CPT/HCPCS: 36415; 80053; 82607; 82746; 82947; 83036; 83540; 84436; 84443; 85025

== ENCOUNTER 2023-02-01 02:13 | Day surgery (SDC) | payer OTHER, SELFPAY ==
[2023-01-08 12:40] VITALS: BMI 30.1
--- NOTE | 2023-01-08 12:45 | PC.NURSE ---
Report to the Outpatient Waiting Room, entrance under the green pavilion located off [facility], at time 1100 on date 01/18/23. Planned Procedure Time: 1300. Time changes happen often and if your time is changed the preop area will call you the afternoon before. - You and your visitor will be asked to self-screen and do not enter if you have any COVID symptoms. - A mask is optional within the hospital at this time. Patients may have clear liquids (water, carbonated beverages, clear teas, apple juice) until 3 hours prior to surgery with a maximum of 20 ounces. - No food from midnight until time of surgery Take the following medications with a SIP of water the morning of surgery: ESCITALOPRAM DO NOT STOP ANY OF YOUR OTHER PRESCRIPTION MEDICATIONS PRIOR TO SURGERY ?EXCEPT THE FOLLOWING Medications to discontinue per physician: N/A Date to take last dose: N/A Please no make-up, nail bahamian, hairspray, perfume, deodorant, or body powder the day of surgery. No jewelry (including any body piercings) or valuables the day of surgery, leave them at home. Please take a shower or bath the night before, or the morning of, surgery with an antibacterial soap. Wear comfortable, loose fitting clothing. - Jewelry must be removed prior to entering the operating room. Rings and piercings that are not removed may be cut off. - The hospital will not accept responsibility for valuables. - Please leave all valuables, including medications, at home the day of surgery. If you are going home after surgery, a licensed lyft driver must drive you home. - NO public transportation without another adult if you receive anesthesia. - We recommend that an adult stay with you for 24 hours following discharge. - We also recommend that you do not drive, make important decision, drink alcoholic beverages, or take any drugs that were not prescribed by your health care provider for at least 24 hours after your discharge time. Follow any additional instructions given to you from your surgeon. If you or anyone in your household have experienced Covid symptoms in the past week, please notify your surgeon or the nurse liaison at the phone number below for possible testing. Telephone instructions given to PT - JUVENTINO KUMAR and asked if any additional questions and then verbalized understanding. Patient advised to call surgeon office or pre surgery nurse liaison [phone] if any additional questions.
--- NOTE | 2023-01-18 07:05 | WPDHPUPDATE1 ---
History and Physical Update Update Date/Time: 01/18/23 07:05 History and Physical has been reviewed, including an updated exam of the patient. There are NO changes in the patient's condition. Risks, benefits, and alternatives have been discussed and questions answered. Patient agrees to proceed with hysteroscopy, D&C and possible polypectomy/myomectomy.
--- NOTE | 2023-01-20 13:36 | SUR.PREOP ---
Report to the Outpatient Waiting Room, entrance under the green pavilion located off [facility], at time 0600 on date 02/01/23. Planned Procedure Time: _07_. Time changes happen often and if your time is changed the preop area will call you the afternoon before. - You and your visitor will be asked to self-screen and do not enter if you have any COVID symptoms. - A mask is optional within the hospital at this time. Patients may have clear liquids (water, carbonated beverages, clear teas, apple juice) until 3 hours prior to surgery with a maximum of 20 ounces. - No food from midnight until time of surgery before 0430 am - Infants may have breast milk until 4 hours before surgery, formula 6 hours prior to surgery. - Children will be allowed to drink immediately following surgery. If applicable, please bring a bottle or sippy cup to assist with drinking. Juice, water, soda, and popsicles are readily available. For infants on formula, please bring formula the day of surgery. Pacifiers are allowed. Take the following medications with a SIP of water the morning of surgery: __N/A DO NOT STOP ANY OF YOUR OTHER PRESCRIPTION MEDICATIONS PRIOR TO SURGERY ?EXCEPT THE FOLLOWING Medications to discontinue per physician n/a Date to take last dose Please no make-up, nail kiswahili, hairspray, perfume, deodorant, or body powder the day of surgery. No jewelry (including any body piercings) or valuables the day of surgery, leave them at home. Please take a shower or bath the night before, or the morning of, surgery with an antibacterial soap. Wear comfortable, loose fitting clothing. Children are encouraged to wear pajamas. - Jewelry must be removed prior to entering the operating room. Rings and piercings that are not removed may be cut off. - The hospital will not accept responsibility for valuables. - Please leave all valuables, including medications, at home the day of surgery. If you are going home after surgery, a licensed sales route driver helper must drive you home. - NO public transportation without another adult if you receive anesthesia. - We recommend that an adult stay with you for 24 hours following discharge. - We also recommend that you do not drive, make important decision, drink alcoholic beverages, or take any drugs that were not prescribed by your health care provider for at least 24 hours after your discharge time. For Pediatric surgeries, we recommend two adults accompany the child home. Follow any additional instructions given to you from your surgeon. If you or anyone in your household have experienced Covid symptoms in the past week, please notify your surgeon or the nurse liaison at the phone number below for possible testing. Telephone instructions given to _patient__and asked if any additional questions and then verbalized understanding. Patient advised to call surgeon office or pre surgery nurse liaison [phone] if any additional questions.
--- NOTE | 2023-01-20 13:38 | PC.NURSE ---
1330 - spoke with pt in regards to new surgery date and time. pt denies any new medications and health history. pt denies any questions at this time.
--- NOTE | 2023-01-29 18:24 | WPDANESEPP ---
Anes - Eval Pre Procedure Procedure: Operation Date: 02/01/23 07:30 Proposed Procedures p Hysteroscopy Dilation and Curettage with Polypectomy - Diandra Villanueva MD Date/Time: 01/29/23 18:24 Pre Op Diagnosis: abnormal uterine bleeding Patient Data Age: 32 Gender: F Height: 1.5 m Weight: 67.6 kg Allergies Allergy/AdvReac Type Severity Reaction Status Date / Time No Known Allergies Allergy Verified 01/08/23 12:39 Home Medications Medication Instructions Recorded Confirmed Type escitalopram oxalate 10 mg tablet 10 mg PO DAILY #90 tabs 05/15/22 01/08/23 Rx Patient hx anesthesia problems: none Family hx anesthesia problems: none Results Review: All pre-operative results and documents have been reviewed as part of the pre-operative evaluation. [facility] Past Medical History Medical History (Updated 01/29/23 @ 18:24 by Radha Stark CRNA) Healthy adult Obesity (BMI 30-39.9) Surgical History Surgical History No pertinent past surgical history Family History Family History Grandparent Graves' disease CHF (congestive heart failure) Mother Malignant tumor of ovary Father Epilepsy Social History Social History (Updated 12/29/22 @ 15:55 by Shannon Chao MA) Smoking status: Current every day smoker Tobacco type: e-cigarettes/vaping Alcohol intake: current Alcohol use details: VERY RARE Substance use: never Substance use type: does not use Current Housing: Decline to Answer Concerned About Future Housing: Decline to Answer Difficulty Paying Gas/Electric Bills: Decline to Answer Difficulty Paying for Meds: Decline to Answer Currently Unemployed: Decline to Answer Education: Decline to Answer Difficulty w/ Childcare or Family Care: Decline to Answer Living arrangements: with family Occupation/Education: occupation Gender identity (if verbalized by the patient): Female Sexual Orientation (if Verbalized by the Patient): Straight or Heterosexual Spiritual care concerns: No Exam Day of Procedure 01/29/23 18:24
--- NOTE | 2023-01-31 12:46 | PM.IMHP ---
H&P: HPI History of Present Illness Date/Time: 01/31/23 12:46 Chief Complaint: AUB Narrative: Barbara is a 32yo P1001, who presented for WWE; pap normal 11/2020. She has been having irregular bleeding. She reports her first cycle after delivery lasted on and off for 6 weeks; occasional clots. But the first week of December, she had 4 days of extremely heavy bleeding with passage of multiple large clots every day. PAPER SHEETER US on 12/21/22 showed concerns for possible endometrial polyp/fibroid. She denies symptoms of anemia but has not checked blood levels. She denies any pelvic pain. She is sexually active w/o issue; using condoms. Review of Systems Constitutional: Constitutional: Denies chills, Denies fever(s) and Denies headache(s) Eyes: Eyes: Denies change in vision ENT: Denies dizziness and Denies headache(s) Cardiovascular: Cardiovascular: Denies chest pain and Denies dyspnea Respiratory: Respiratory: Denies cough and Denies dyspnea Gastrointestinal: Gastrointestinal: Denies abdominal pain and Denies change in stool character Genitourinary: Genitourinary: Denies abnormal menses, Reports abnormal vaginal bleeding, Reports menorrhagia, Reports dysmenorrhea, Denies pelvic pain, Denies vaginal discharge, Denies vaginal odor and Denies vaginal pruritus Neurologic: Denies dizziness and Denies headache(s) Psychiatric: Psychiatric: Denies anxiety and Denies depression [facility] Past Medical History Medical History (Updated 01/29/23 @ 18:24 by Radha Stark CRNA) Healthy adult Obesity (BMI 30-39.9) Surgical History Surgical History No pertinent past surgical history Family History Family History Grandparent Graves' disease CHF (congestive heart failure) Mother Malignant tumor of ovary Father Epilepsy Social History Social History (Updated 12/29/22 @ 15:55 by Shannon Chao MA) Smoking status: Current every day smoker Tobacco type: e-cigarettes/vaping Alcohol intake: current Alcohol use details: VERY RARE Substance use: never Substance use type: does not use Current Housing: Decline to Answer Concerned About Future Housing: Decline to Answer Difficulty Paying Gas/Electric Bills: Decline to Answer Difficulty Paying for Meds: Decline to Answer Currently Unemployed: Decline to Answer Education: Decline to Answer Difficulty w/ Childcare or Family Care: Decline to Answer Living arrangements: with family Occupation/Education: occupation Gender identity (if verbalized by the patient): Female Sexual Orientation (if Verbalized by the Patient): Straight or Heterosexual Spiritual care concerns: No Meds Home Medications and Allergies Home Medications Medication Instructions Recorded Confirmed Type escitalopram oxalate 10 mg tablet 10 mg PO DAILY #90 tabs 05/15/22 01/08/23 Rx Allergies Allergy/AdvReac Type Severity Reaction Status Date / Time No Known Allergies Allergy Verified 01/08/23 12:39 Exam Const: General: cooperative, comfortable, no acute distress and obese Orientation/consciousness: patient oriented x3 Resp: Effort & Inspection: normal respiratory effort Cardio: Rate: regular rate GI: Inspection: normal to inspection GI Palp: No abdominal tenderness and Yes Soft to palpation : Other: deferred to OR Skin: General skin exam: normal color Neuro: General: patient oriented x3 Extrem: General: normal to inspection Psych: Appearance: grossly normal Affect: normal affect Attitude: cooperative Assessment and Plan Assessment and plan (1) Abnormal uterine bleeding: Code(s): N93.9 - Abnormal uterine and vaginal bleeding, unspecified Status: Acute Plan - proceed with hysteroscopy, d&C and possible polypectomy vs myomectomy - risks and benefits discussed in detail
[2023-02-01] MEDS: ACETAMINOPHEN 500 MG TABLET 1000 MG PO (07:02)
--- NOTE | 2023-02-01 07:15 | WPDHPUPDATE1 ---
History and Physical Update Update Date/Time: 02/01/23 07:15 History and Physical has been reviewed, including an updated exam of the patient. There are NO changes in the patient's condition. Risks, benefits, and alternatives have been discussed and questions answered. Patient agrees to proceed with hysteroscopy, D&C with possible polypectomy vs myomectomy.
[2023-02-01 07:24] VITALS: BP 95/61; PULSE 90; RESP 16; TEMP 36.6; O2SAT 100
[2023-02-01] MEDS: LACTATED RINGERS 1,000 ML 30 ML IV CONT (07:26)
--- NOTE | 2023-02-01 07:44 | P.PNAN_ITS ---
Anes - Eval Final PreProcedure Day of Procedure 02/01/23 07:44 Patient weight: overweight Heart: regular rate and rhythm Lungs: clear to auscultation Airway: Mallampati scale class II and special considerations (small mouth open ing) Neurological: alert and oriented Last oral intake: >/= 8 hours ASA classification: II Emergent: no Anesthetic plan: proceed Anesthesia type and monitoring: general GIVS and standard monitoring Results Review: All pre-operative results and documents have been reviewed as part of the pre- operative evaluation. Informed Consent: The patient's anesthetic plan and its attendant risks and benefits were discussed with the patient/family/POA. Questions were solicited and answers provided to the satisfaction of the patient/family/POA.
--- NOTE | 2023-02-01 08:25 | W.PM.PROC2 ---
Procedure Note - Detailed Date of Procedure 02/01/23 Pre-op Diagnosis Abnormal uterine bleeding Post-op Diagnosis Same Procedure Performed Hysteroscopy with D&C Surgeon Diandra Villanueva MD Anesthesia MAC Findings Normal appearing cervix. Normal cavity; possible calcified polyp arising from posterior uterine wall, removed with D&C. Bilateral tubal ostia visualized. Good hemostasis at end of case. Description of Procedure Barbara was taken to the operating room where she was placed under sedation without complications. She was then prepped and draped in the usual sterile fashion in the dorsal lithotomy position with her legs in low Albert stirrups. A time-out was performed and no perioperative antibiotics were indicated. A bivalve speculum was placed within the vagina where the cervix was easily identified. The anterior lip of the cervix was grasped with a single-tooth tenaculum. The cervix was then serially dilated to allow for the hysteroscope. The hysteroscope was advanced into the uterine cavity with the above findings noted. A gentle curettage was then performed with a significant amount of tissue removed. The hysteroscope was once again advanced into the uterine cavity where tissue was still noted. Another gentle curettage was performed and the calcified nodule was then noted to be removed. Good hemostasis was noted. All instruments were removed from the vagina. Sponge, lap, instrument, and needle counts were correct at the end of the procedure. Patient was awoken from anesthesia without complications and taken to recovery with plans of same-day discharge home. Estimated Blood Loss 10 IV Fluids 700 (Fluid deficit: 50cc) Pathology Yes (Endometrial curettings) Complications No immediate complications Condition Stable Disposition Same day [facility] Billing Surgery - Charge Forward: Surgery Billing
[2023-02-01 08:29] VITALS: BP 96/53; PULSE 75; RESP 20; O2SAT 97
[2023-02-01 08:50] VITALS: BP 108/57; PULSE 74; RESP 20
[2023-02-01 09:15] VITALS: BP 108/57; PULSE 74; RESP 20
== END 2023-02-01 09:25 | disposition home or self-care (01) ==
PROVIDERS: PCP Physician Assistant; Visit Provider Obstetrics & Gynecology
PROC: 0U5B8ZZ Destruction of Endometrium, Via Natural or Artificial Opening Endoscopic (ICD-10-PCS; CPT 58563; principal; 2023-02-01 07:30)
DX: N93.9 Abnormal uterine and vaginal bleeding, unspecified (principal); F17.290 Nicotine dependence, other tobacco product, uncomplicated; E66.9 Obesity, unspecified; Z68.30 Body mass index [BMI] 30.0-30.9, adult
CPT/HCPCS: 58558; 88305; A9270; J2250; J2704; J3010; J7120

== ENCOUNTER 2023-08-30 16:06 | Emergency (ER) | payer OTHER, SELFPAY ==
--- NOTE | ~2023-08-30 | XR_ITS ---
EXAMINATION: XR chest 2V Exam Date/Time: 08/30/2023 17:55 ACCOUNTS PAYABLE SPECIALIST HISTORY: shortness of breath LEFT ARM PAIN AND DIZZINESS Comparison: None. RESULT: Lines, tubes, and devices: None. Lungs and pleura: Clear. Cardiomediastinal silhouette: Normal. Other: No acute osseous or upper abdominal finding. IMPRESSION: No acute cardiopulmonary process. Reviewed, dictated and finalized at location K. UNTS PAYABLE SPECIALIST
[2023-08-30 16:10] VITALS: BP 108/57; PULSE 79; RESP 18; TEMP 36.2; O2SAT 100
--- NOTE | 2023-08-30 17:00 | ED.GENADULT ---
HPI - General Adult General Chief complaint: Dizziness <Martina Ponce November, PHOTOGRAPHER APPRENTICE LITHOGRAPHIC - Last Filed: 08/30/23 17:04> Stated complaint: dizzyx2 weeks/arm pain <Martina Ponce November, PHOTOGRAPHER APPRENTICE LITHOGRAPHIC - Last Filed: 08/30/23 17:04> Time Seen by Provider: 08/30/23 17:00 <Martina Ponce November, PHOTOGRAPHER APPRENTICE LITHOGRAPHIC - Last Filed: 08/30/23 17:04> Focused HPI: Barbara Muñiz is a 33 y/o female who presents with reports that she has been having dizziness off and on for 1-2 weeks she states that she hasn't identified a trigger, along with heart palpitations, heart rate increasing with minor activity, night sweats and constant pain to her left shoulder and left arm. Denies any recent trauma or falls. Denies any fevers/ hx of gestational DM and anxiety. GENERAL: Well-appearing, well-nourished, and in no acute distress. HEAD: Normocephalic, atraumatic. CHEST: Clear to auscultation. ?No respiratory distress. HEART: Regular rate and rhythm.? NEURO: ?Alert and oriented x3. Patient screened in triage and initial orders placed.? ?Additional care and disposition to be based upon?diagnostic testing and treatment. <Martina Ponce November, PHOTOGRAPHER APPRENTICE LITHOGRAPHIC - Last Filed: 08/30/23 17:04> History of Present Illness HPI narrative: 33-year-old female presents to the emergency department for evaluation of intermittent dizziness. Patient states he has had the sensation of floating intermittently over the course of the last few weeks but worsened over the last few days. Patient states symptoms are worsened with movement and when she turns her head. Patient states she also does feel like she is having a sensation like she is going to pass out the patient has not had any syncopal episodes. Patient denies any falls or injuries related to this. Patient is also complaining of left shoulder pain that is very reproducible. Patient states she does carry her child with that arm and states when she reaches behind her back she has left-sided anterior shoulder pain. Patient states the arm pain is not associated with the dizziness sensation. <Juan Mclaughlin MD - Last Filed: 08/31/23 07:03> Related Data Allergies/adverse reactions: Allergies Allergy/AdvReac Type Severity Reaction Status Date / Time No Known Allergies Allergy Verified 05/12/23 10:12 <Martina Ponce November, - Last Filed: 08/30/23 17:04> Review of Systems Review of Systems: All systems reviewed & are unremarkable except as noted in HPI and below <Juan Mclaughlin MD - Last Filed: 08/31/23 07:03> PMFSH Past Medical History Medical History: Medical History Healthy adult Obesity (BMI 30-39.9) <Martina Ponce November,N - Last Filed: 08/30/23 17:04> Surgical History Surgical History: Surgical History H/O gynecological procedure 02/01/23 Hysteroscopy with D&C No pertinent past surgical history <Martina Ponce November, - Last Filed: 08/30/23 17:04> Family History Family History: Family History Grandparent Graves' disease CHF (congestive heart failure) Mother Malignant tumor of ovary Father Epilepsy <Martina Ponce November, - Last Filed: 08/30/23 17:04> Social History Social History: Social History Smoking status: Current every day smoker Tobacco type: e-cigarettes/vaping Alcohol intake: current Alcohol use details: VERY RARE Substance use: never Substance use type: does not use Current Housing: Decline to Answer Concerned About Future Housing: Decline to Answer Difficulty Paying Gas/Electric Bills: Decline to Answer Difficulty Paying for Meds: Decline to Answer Currently Unemployed: Decline to Answer Education: Decline to Answer Difficulty w/ Childcare or Family Care: Decline to Answer Living arrangements: with family Occupation/Education: occupation Gender identity (if verbalized by th
--- NOTE | 2023-08-30 17:04 | ECG_ITS ---
Measurements Intervals [place] Rate: 80 P: 40 NC: 147 QRS: 27 QRSD: 84 T: 13 QT: 364 QTc: 422 Interpretive Statements SINUS RHYTHM WITH SINUS ARRHYTHMIA LOW-VOLTAGE QRS IN PRECORDIAL LEADS BORDERLINE ECG NO PREVIOUS ECG AVAILABLE FOR COMPARISON Electronically Signed On 08-30-2023 18:36:46 CARPENTRY INSTRUCTOR by Eloy Broussard M.D.
[2023-08-30 17:47] VITALS: BP 113/68; PULSE 86; RESP 19; O2SAT 97
[2023-08-30 18:05] LABS: Basophils Percent Auto 0.3 % (0.2-1.2); Eosinophils Percent Auto 0.6 % (0-4.4); Hematocrit 41.5 % (37.0-47.0); Hemoglobin 13.3 g/dL (12.0-15.0); Immature Granulocyte Absolute 0.02 K/mm3 (0.00-0.031); Immature Granulocyte Percent A 0.3 % (0-0.5); Lymphocytes Absolute Auto 1.87 K/mm3 (0.9-3.2); Lymphocytes Percent Auto 26.8 % (18.3-44.2); Mean Corpuscular Hemoglobin 28.7 pg (26-34); Mean Corpuscular Volume 89.4 fl (80-100); Mean Platelet Volume 10.7 fl (7.4-10.4); Monocytes Absolute Auto 0.4 K/mm3 (0.1-0.6); Monocytes Percent Auto 5.6 % (2.6-8.5); Neutrophils Absolute Auto 4.7 K/mm3 (1.3-6.7); Neutrophils Percent Auto 66.4 % (45.5-73.1); Platelet Count Result 266 k/mm3 (150-375); Red Blood Count 4.64 M/mm3 (4.2-5.4); Red Cell Distribution Width 14.1 % (11.5-14.5)
[2023-08-30 18:07] LABS: Appearance Urine Clear (Clear); Bilirubin Urine Negative (Negative); Blood Urine Negative (Negative); Color Urine Yellow (Yellow); Glucose Urine UA Negative (Negative); Ketones Urine Negative (Negative); Leukocyte Esterase Ur Negative LEU/UL (Negative); Nitrate Urine Negative (Negative); Protein Urine Negative (Negative); Specific Grav Ur 1.008 (1.001-1.035); Urobilinogen Urine 0.2 mg/dL (<2.0)
[2023-08-30 18:14] LABS: Alanine Aminotransferase 22 U/L (6-35); Albumin Level 4.8 g/dL (3.5-5.1); Alkaline Phosphatase 58 U/L (38-126); Anion Gap 5 mmol/L (8-16); Aspartate Amino Transferase 28 U/L (14-36); Bilirubin,Total 0.6 mg/dL (0.2-1.3); Blood Urea Nitrogen 13 mg/dL (7-17); Calcium 9.8 mg/dL (8.4-10.2); Carbon Dioxide 29 mmol/L (22-30); Chloride 104 mmol/L (98-107); Estimated Glomerular Filt Rate > 60; Glucose 106 mg/dL (65-110); Potassium 3.7 mmol/L (3.4-5.0); Sodium 138 mmol/L (137-145)
[2023-08-30 18:20] LABS: Add Urine Microscopic? NO
[2023-08-30 18:22] LABS: D Dimer < 0.27 ug/mL (<0.48)
[2023-08-30 18:32] LABS: Troponin I < 0.012 ng/mL (0.000-0.034)
[2023-08-30 20:30] VITALS: BP 105/66; BP 96/64; PULSE 75; PULSE 79
[2023-08-30 20:31] VITALS: BP 110/75; PULSE 87
[2023-08-30 20:46] VITALS: BP 107/76; PULSE 78; RESP 16; O2SAT 99
[2023-08-30] MEDS: SODIUM CHLORIDE 0.9% IV 1,000 ML 999 ML IV CONT (21:13)
[2023-08-30] MEDS: MECLIZINE HCL 25 MG TABLET PO (21:13)
[2023-08-30 21:17] VITALS: BP 95/53; PULSE 75; RESP 14; O2SAT 100
--- NOTE | 2023-08-30 22:00 | PC.NURSE ---
pt called out using her call light and asked if pt needed to finish her fluids before being discharged. this rn confirmed with edp dr. pineda if that was okay for pt to d/c her fluids to be discharged. edp dr. farias confirmed.
== END 2023-08-30 22:11 | disposition home or self-care (01) ==
PROVIDERS: Nurse Practitioner Family; Emergency Provider Emergency Medicine; PCP Physician Assistant
DX: R42 Dizziness and giddiness (principal); M25.512 Pain in left shoulder; E66.9 Obesity, unspecified; Z68.30 Body mass index [BMI] 30.0-30.9, adult; F17.290 Nicotine dependence, other tobacco product, uncomplicated
CPT/HCPCS: 36415; 71046; 80053; 81003; 81025; 84484; 85025; 85380; 93005; 96360; 99284; A9270; J7030

== ENCOUNTER 2024-01-04 10:54 | Outpatient (CLI) | payer OTHER, SELFPAY ==
[2024-01-04 12:08] LABS: Basophils Percent Auto 0.3 % (0.2-1.2); Eosinophils Percent Auto 0.6 % (0-4.4); Hematocrit 42.5 % (37.0-47.0); Hemoglobin 13.5 g/dL (12.0-15.0); Immature Granulocyte Absolute 0.04 K/mm3 (0.00-0.031); Immature Granulocyte Percent A 0.6 % (0-0.5); Lymphocytes Absolute Auto 1.35 K/mm3 (0.9-3.2); Lymphocytes Percent Auto 21.6 % (18.3-44.2); Mean Corpuscular HGB Conc 31.8 g/dl (32-36); Mean Corpuscular Volume 91.2 fl (80-100); Mean Platelet Volume 10.9 fl (7.4-10.4); Monocytes Absolute Auto 0.3 K/mm3 (0.1-0.6); Monocytes Percent Auto 5.4 % (2.6-8.5); Neutrophils Absolute Auto 4.5 K/mm3 (1.3-6.7); Neutrophils Percent Auto 71.5 % (45.5-73.1); Platelet Count Result 221 k/mm3 (150-375); Red Blood Count 4.66 M/mm3 (4.2-5.4); Red Cell Distribution Width 13.5 % (11.5-14.5); White Blood Count 6.3 K/mm3 (4.5-10.0)
[2024-01-04 12:41] LABS: Hemoglobin A1C 5.1 % (<5.7)
[2024-01-04 12:46] LABS: Alanine Aminotransferase 19 U/L (6-35); Albumin Level 4.9 g/dL (3.5-5.1); Alkaline Phosphatase 64 U/L (38-126); Anion Gap 10 mmol/L (4-12); Aspartate Amino Transferase 22 U/L (14-36); Bilirubin,Total 0.6 mg/dL (0.2-1.3); Blood Urea Nitrogen 9 mg/dL (7-17); CRP < 0.5 mg/dL (<1.0); Calcium 9.3 mg/dL (8.4-10.2); Carbon Dioxide 24 mmol/L (22-30); Chloride 106 mmol/L (98-107); Cholesterol 212 mg/dL (0-200); Estimated Glomerular Filt Rate > 60; Glucose 94 mg/dL (65-110); HDL Direct 53 mg/dL; Potassium 3.9 mmol/L (3.4-5.0); Sodium 140 mmol/L (137-145); Triglycerides 82 mg/dL (<150)
[2024-01-04 12:55] LABS: LDL Cholesterol Direct 125 mg/dL
[2024-01-04 13:02] LABS: Rheumatoid Factor < 12.0 IU/ML (<12)
[2024-01-04 13:06] LABS: Iron 95 ug/dL (37-170)
[2024-01-04 13:18] LABS: Percent Iron Saturation 25 % (20-50)
[2024-01-04 13:21] LABS: Vitamin D 25 Hydroxy 31.3 ng/mL
[2024-01-04 13:48] LABS: Folic Acid 8.2 ng/mL (2.76->20)
[2024-01-04 16:07] LABS: Free T4 Free Thyroxine 0.99 ng/mL (0.78-2.19)
[2024-01-06 13:24] LABS: Cyclic Citrullinated Peptide <16 UNITS
[2024-01-07 11:53] LABS: Anti Nuclear Antibody Pattern Nuclear, Speckled
== END 2024-01-04 10:55 | disposition home or self-care (01) ==
PROVIDERS: PCP Physician Assistant; Visit Provider Physician Assistant
DX: R53.83 Other fatigue (principal); M25.50 Pain in unspecified joint; R00.2 Palpitations; Z13.220 Encounter for screening for lipoid disorders; Z13.1 Encounter for screening for diabetes mellitus
CPT/HCPCS: 36415; 80053; 80061; 82306; 82607; 82728; 82746; 83036; 83540; 83550; 83735; 84439; 84443; 85025; 86038; 86039; 86140; 86200; 86430

== ENCOUNTER 2024-02-19 16:06 | Emergency (ER) | payer OTHER, SELFPAY ==
--- NOTE | 2024-02-19 16:13 | ECG_ITS ---
Test Date: 2024-02-19 16:20:30 Measurements Intervals [place] Rate: 84 P: 21 AK: 139 QRS: 21 QRSD: 80 T: 5 QT: 343 QTc: 405 Interpretive Statements SINUS RHYTHM LOW QRS VOLTAGE IN PRECORDIAL LEADS [QRS DEFLECTION < 1.0 mV IN CHEST LEADS] NONSPECIFIC T-WAVE ABNORMALITY No previous ECG available for comparison Electronically Signed On 02-20-2024 13:38:19 CDT by Lars Verde M.D.
[2024-02-19 16:14] VITALS: BP 96/54; PULSE 96; RESP 20; TEMP 36.6; O2SAT 99
--- NOTE | 2024-02-19 18:22 | PC.NURSE ---
pt left d/t wait time
== END 2024-02-19 18:38 | disposition left against medical advice (07) ==
LOC: ANHED 18:25
PROVIDERS: Emergency Provider Student in an Organized Health Care Education/Training Program; PCP Physician Assistant
DX: R06.02 Shortness of breath (principal); R42 Dizziness and giddiness
CPT/HCPCS: 93005; 99199

== ENCOUNTER 2024-07-11 17:27 | Emergency (ER) | payer OTHER, SELFPAY ==
[2024-07-11 18:17] VITALS: BP 101/61; PULSE 86; RESP 16; TEMP 36.3; O2SAT 99
[2024-07-11 19:52] LABS: EDCOVIDSCREEN Negative (Negative); EDINFLUASCREEN Negative (Negative); EDINFLUBSCREEN Negative (Negative)
== END 2024-07-11 19:25 | disposition left against medical advice (07) ==
LOC: EXPGOSH 17:36
PROVIDERS: Emergency Provider Registered Nurse; PCP Physician Assistant
DX: R53.83 Other fatigue (principal); Z20.822 Contact with and (suspected) exposure to COVID-19
CPT/HCPCS: 87426; 87804; 99199

== ENCOUNTER 2024-07-31 15:30 | Outpatient (CLI) | payer OTHER, SELFPAY ==
--- NOTE | ~2024-07-31 | MR_ITS ---
EXAMINATION: MR brain IAC wo/w con DATE: 07/31/2024 16:30 INDICATION: Dizziness and giddiness. TECHNIQUE: Magnetic resonance imaging (MRI) of the brain, brainstem, and internal auditory canals was performed without and with 14 mL MultiHance intravenous contrast. COMPARISON: Head CT 04/23/2006 FINDINGS: There is no intracranial hemorrhage, acute infarction, or abnormal intracranial mass lesion . The ventricles are normal in size. There is a mucous retention cyst in right maxillary sinus. The o rbits are normal. The mastoid air cells are normal. IMPRESSION: 1. Normal brain. Reviewed, dictated and finalized at location B. CTOR IMPRESSION: 1. Normal brain.
== END 2024-07-31 15:31 | disposition home or self-care (01) ==
PROVIDERS: PCP Physician Assistant; Visit Provider Physician Assistant
DX: R42 Dizziness and giddiness (principal)
CPT/HCPCS: 70553; A9577

== ENCOUNTER 2025-02-15 15:19 | Outpatient (CLI) | payer OTHER, SELFPAY ==
--- OUTSIDE RECORDS SUMMARY | 2025-02-15 15:26 | XMS_ITS | Encounter Summary ---
Author Organization [facility] Address [address] [place] [address] Care Team Providers Care Business Systems Developer Name Role Phone Unavailable Primary Care Provider Unavailabl e Encounter Details Date Type Department Care Team (Late st Contact Info) Description 02/13/2025 External Device Data [facility]CTION Provider, Abstract NO ADDRESS ON FILE Social History Tobacco Use Types Packs/Day Years Used Date Smoking Tobacco: Former Cigarettes Smokeless Tobacco: Never Alcohol Use Standard Drinks/Week Comments Yes 0 (1 standard drink = 0.6 oz pur e alcohol) rarely Comments Unknown Sex and Gender Information Value Date Recorded Sex Assigned at Female 02/29/2024 1:45 PM CDT Legal Sex Female 1:24 PM CDT Gender Identity Female 02/29/2024 1:45 PM CDT Sexual Orientation Straight 02/29/2024 1: 45 PM CDT documented as of this encounter Plan of Treatment Not on file documented as of this encounter Visit Diagnoses Not on filedocumented in this encounter
--- OUTSIDE RECORDS SUMMARY | 2025-02-15 15:26 | XMS_ITS | Clinical Summary ---
Author Organization [facility] [address] [facility] Address [address] [place] [address] Care Team Providers Care Electronic Tech Name Role Phone Unavailable Primary Care Provider Unavailabl e Allergies No known active allergies Medications metoprolol tartrate (LOPRESSOR) 25 mg tabletIndicatio ns:abdominal pain with cramps Take 0.5 Tablets (12.5 mg) by mouth 2 times daily as needed (Palpitation s). 30 Tablet 2 06/21/2024 Active Active Problems Patient Care Coordination No te Formatting of this note migh t be different from the original. Scullion Chief-Dr Paige [facility] [id number] [facility] [address] [place] [address] No known active problems Encounters Date Type Department Care Team Description 02/13/2025 External Device Data [facility] Provider, Abstract 01/24/2025 External Device Data [facility] Provider, Abstract 01/23/2025 External Device Data [facility] Provider, Abstract 01/02/2025 External Device Data [facility] Provider, Abstract 12/26/2024 External Device Data [facility] Provider, Abstract 11/30/2024 External Device Data [facility] Provider, Abstract 11/29/2024 External Device Data [facility] Provider, Abstract 11/28/2024 External Device Data [facility] Provider, Abstract from Last 3 Months Family History Medical History Relation Name Comments Heart Attack Father Heart Surgery Father High Cholesterol Father Hypertension Father Relation Name Status Comments Father Social History Tobacco Use Types Packs/Day Years Used Date Smoking Tobacco: Former Cigarettes Smokeless Tobacco: Never Tobacco Cessation:Counseling Given: Not Answered Alcohol Use Standard Drinks/Week Comments Yes 0 (1 standard drink = 0.6 oz pur e alcohol) rarely Comments Unknown Sex and Gender Information Value Date Recorded Sex Assigned at Female 02/29/2024 1:45 PM CDT Legal Sex Female 1:24 PM CDT Gender Identity Female 02/29/2024 1:45 PM CDT Sexual Orientation Straight 02/29/2024 1: 45 PM CDT Last Filed Vital Signs Vital Sign Reading Time Taken Comments Blood Pressure 102/60 06/21/2024 3:47 PM [employer]AIL [employer] SALES BEAUTY ADVISOR Pulse 85 06/21/2024 3:47 PM RETAIL [employer] SALES BEAUTY ADVISOR Temperature - - Respiratory Rate - - Oxygen Saturation 98% 06/21/2024 3:47 PM RETAIL [employer] SALES BEAUTY ADVISOR Inhaled Oxygen Concentration - - Weight 68 kg (150 lb) 06/21/2024 3:47 PM RETAIL COSMET[employer] SALES BEAUTY ADVISOR Height 149.9 cm (4' 11) 06/21/2024 3:47 PM RETAIL COSMET[employer] SALES BEAUTY ADVISOR Body Mass Index 30.3 06/21/2024 3:47 PM RETAIL COSMET[employer] SALES BEAUTY ADVISOR Plan of Treatment Health Maintenance Due Date Last Done Comments HPV VACCINES (1 - 3-dose series) 2005 DTAP/TDAP/TD VACCINES (1 - Tdap) 2009 HEPATITIS B VACCINES (1 of 3 - 19+ 3-dose series) 06/11 HPV/Cotest (21-29) 2011 CERVICAL CANCER SCREENING 2020 HPV/Cotest (30-65) 2020 PAP SMEAR 2020 INFLUENZA VACCINE (#1) 2025 Insurance Member Subscriber Plan / Payer (Ef fective 2023-Present) Name:VINEET KUMAR Relation to Subscriber:Spouse Name:LAURA KUMAR Date of :1987 (Home) Address: [address] [place] [address] Payer ID:[id number] (NAIC) Type:PPO Address: [facility] [address] [place] [id number]
--- OUTSIDE RECORDS SUMMARY | 2025-02-15 15:26 | XMS_ITS | Clinical Summary ---
Author Organization [facility] Address [address] [place] [address] Care Team Providers Care Enterprise Application Architect Name Role Phone Bobbi Cornejo Primary Care Pr ovider Source Comments [facility],non-owned Affiliates and Associated Physician Practices is amultiple site organization consisting of ambulatory clinics and hospital sitesin [place], [place]. This disclosure is being madepursuant to the Care Everywhere program and may not contain all information available regarding this patient. Last updated 18.[facility] Allergies No known active allergies Medications * Be aware that medications may not be up to date on this document. Alwaysverify current medications with the patient. mupirocin (BACTROBAN) 2 % ointmentIndica tions:Minor Bacterial Skin Infection (Inactive) Apply to affected area 3 times daily Reasons: Minor Skin Infection due to a Bacteria 22 g 02/25/20 19 Active Vit-DSS-Fe Fum-FA ( vitamin with iron) tablet Take 1 tablet by mouth once daily Active escitalopram (Lexapro) 10 MG tablet Take 10 mg by mouth once daily Active ferrous sulfate 325 (65 FE) MG tablet Take 325 mg by mouth once daily Active insulin detemir (Levemir) pen Inject 8 (eight) Units subcutaneously as directed Start with 8 units at 9am, 8 uints at 9pm. Increase as directed. 15 mL 2 09/21/20 22 Active Additional Information Patient taking differently: 10 UnitsSubcutaneous DIRECTED,Start with 10 units at 9am, 10 uints at 9pm. 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 04/21/2022 Social History Tobacco Use Types Packs/Day Years Used Date Smoking Tobacco: Former Cigarettes Q uit: 07/12/2018 Smokeless Tobacco: Never Alcohol Use Standard Drinks/Week Comments Never 0 (1 standard drink = 0.6 oz pur e alcohol) Comments No Sex and Gender Information Value Date Recorded Sex Assigned at Not on file 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 Gender Identity Not on file Sexual Orientation Not on file Last Filed Vital Signs Vital Sign Reading Time Taken Comments Blood Pressure 104/71 05/08/2022 10:36 AM CDT Pulse 97 05/08/2022 10:36 AM CDT Temperature 36.9 C (98.4 F) 02/24/2019 5:58 PM CDT Respiratory Rate 19 12/12/2018 4:54 PM CDT Oxygen Saturation 98% 02/24/2019 5:58 PM CDT Inhaled Oxygen Concentration - - Weight 77.6 kg (171 lb) 04/15/2022 12:03 PM CDT Height 149.9 cm (4' 11) 04/01/2022 2:07 PM CDT Body Mass Index 34.54 04/01/2022 2:07 PM CDT Plan of Treatment Health Maintenance Due Date Last Done Comments HIV SCREENING 2005 HEPATITIS C SCREENING 06/22/2008 DTAP/TDAP/TD VACCINES (1 - Tdap) 2009 HEPATITIS B VACCINE (1 of 3 - 19+ 3-dose series) 2009 PAP SMEAR 2011 HPV VACCINE (1 - 3-dose SCDM series) 2017 COVID-19 VACCINE (3 - 2023-2 5 season) 2024 11/12/2020, 10/15/2020 DEPRESSION SCREENING 07/12/2024 INFLUENZA VACCINE (#1) 2025 , 04/05/2019 ZOSTER VACCINE (1 of 2) 2040 HIB VACCINE Aged Out No longer eligi ble based on patient's age to complete this topic MENINGOCOCCAL (Group B) VACCINE SHARED DECISION-MAKING Aged Out No longer eligible based on patient's age to complete this topic MENINGOCOCCAL GROUPS A/C/Y/W VACCINE Aged Out No longer eligible b ased on patient's age to complete this topic PNEUMOCOCCAL VACCINE Aged Out No long er eligible based on patient's age to complete [place] [address] [place] [address] [place] [address] [facility] Care Teams Enterprise Application Architect Relationship Specialty Start Date End Date Bobbi Cornejo PA [address] [place] [address] PCP - General 05/26/22
--- OUTSIDE RECORDS SUMMARY | 2025-02-15 15:26 | XMS_ITS | Clinical Summary ---
Author Organization [facility] [address] [facility] Address [address] [place] [address] Care Team Providers Care Refrigeration Tech Name Role Phone Bobbi Singer Primary Care Pr ovider Mateo Cardoza MD Unavailable [phone] Allergies No known active allergies Medications escitalopram (LEXAPRO) 10 mg tablet Take 1 tablet (10 mg total) by mouth daily Active Active Problems Problem Noted Date Diagnosed Date Positive JEFF (antinuclear antibody) 03/01/2024 Overview (03/24/2024): Labs 03/02/2024 AVISE: JEFF 1:320 speckled, all others negative; C3/4 elevated thus normal CBC and CMP unremarkable ESR, CRP, and CK normal Assessment & Plan (03/24/2024 1:48 PM CDT): 33yoF presents for evaluation due to an JEFF 1:320 with a very broad constellation of symptoms. She notes non-inflammatory sounding joint pain which is migratory affecting her knees, hips, shoulders, and elbows. Perceived muscle weakness and twitching, hair loss, oral ulcer x1, sicca sx, and prior pleuritic pain. Denies any other CTD symptoms. Her exam is largely unremarkable without synovitis, ttp isolated to the thoracic spine. Her strength was appropriate throughout. Our serologic workup shows an isolated JEFF with all other more specific antibodies being negative and with normal inflammatory markers and CK. At this time there is not evidence to substantiate any underlying rheumatologic diagnosis. Recommend continued evaluation by cardiology and consideration for GI eval; in particular, could consider trying to see Dr. Shcmidt, a registered travel nurse who also has a particular interest in POTS. Return here as needed should symptoms warrant. Assessment & Plan (03/02/2024 5:09 PM CDT): 33yoF presents for evaluation due to an JEFF 1:320 with a very broad constellation of symptoms. Discussed that many of these symptoms do not sound rheumatologic in origin, would recommend continued evaluation by cardiology and consideration for GI eval. She notes non-inflammatory sounding joint pain which is migratory affecting her knees, hips, shoulders, and elbows. Perceived muscle weakness and twitching, hair loss, oral ulcer x1, sicca sx, and prior pleuritic pain. Denies any other CTD symptoms. Her exam is largely unremarkable without synovitis, ttp isolated to the thoracic spine. Her strength was appropriate throughout. Overall have a low suspicion for underlying rheumatologic diagnosis. To further evaluate her +JEFF and symptoms, will check additional labs as below with plan for follow up in 2 weeks to review results. Polyarthralgia 03/01/2024 Social History Tobacco Use Types Packs/Day Years Used Date Smoking Tobacco: Never Assessed Comments Unknown Sex and Gender Information Value Date Recorded Sex Assigned at Not on file Legal Sex Female 8:32 AM CDT Gender Identity Not on file Sexual Orientation Not on file Obstetrics History Last Filed Vital Signs Vital Sign Reading Time Taken Comments Blood Pressure 108/64 03/24/2024 12:48 PM CDT Pulse 89 03/24/2024 12:48 PM CDT Temperature - - Respiratory Rate - - Oxygen Saturation 99% 03/24/2024 12:48 PM CDT Inhaled Oxygen Concentration - - Weight 68.9 kg (152 lb) 03/24/2024 12:48 PM CDT Height 149.9 cm (4' 11) 03/02/2024 1:53 PM CDT Body Mass Index 30.7 03/02/2024 1:53 PM CDT Plan of Treatment Health Maintenance Due Date Last Done Comments Cervical Cancer Screening 1990 Depression Screening 1990 Hepatitis C Screening 1990 Varicella Vaccines (1 of 2 - 13+ 2-dose series) 2003 Hepatitis B Screening 2008 Regular Well Visit/Exam 18-64 2008 HPV Vaccines (1 - 3-dose SCD M series) 2017 Influenza Vaccine (#1) 2025 , 04/30/2020, 04/05/2019 DTaP/Tdap/Td Vaccine (3 - Td or Tdap) 05/15/2032 05/15/2022, 07/18/2015 Pneumococcal vaccine <65 Aged Out No longer eligible based on patient's age to complete this topic Insurance [facility] CHOICE PLUS Care Teams Refrigeration Tech Relationship Specialty Start Date End Date Bobbi Singer PA [address] [place] [address] PCP - General Physician Permanent Mold Supervisor 01/26/24 Mateo Cardoza MD [address] [place] [address] Consulting Physician Rheumatology 01/26/24
--- OUTSIDE RECORDS SUMMARY | 2025-02-15 15:26 | XMS_ITS | Continuity of Care Document ---
Author Organization [facility] Address [address] [place] [address] [address] [place] [address] Phone Care Team Providers Care Shell Mold Bonding Machine Operator Name Role Phone Brent Montanez Unavailable Unavailable Advance Directives Directive Yes / No Effective Date File Name No Information Encounters Encounter Description Practice Location Reason(s) For Visit Diagnoses Date Provider Providers Copied on Encounter [facility], [address] [place] [address] [address], [place], [place], [id number], [place] tel:[phone] [facility] No Information 0-200 0 Tarik Kennedy. [address] , [address], [place], [address], [place]. tel:[phone] Family History Family Member Type Diagnosis Age At Onset No Information Payers Payer name Insurance type Covered republican ID Authoriza tion(s) No Information Social History [...]
[2025-02-15 15:48] LABS: Hematocrit 42.7 % (37.0-47.0); Hemoglobin 13.9 g/dL (12.0-15.0); Immature Granulocyte Percent A 0.4 % (0-0.5); Lymphocytes Absolute Auto 1.43 K/mm3 (0.9-3.2); Mean Corpuscular HGB Conc 32.6 g/dl (32-36); Mean Corpuscular Hemoglobin 29.4 pg (26-34); Mean Corpuscular Volume 90.5 fl (80-100); Nucleated Red Blood Cells Absolute Auto 0.000 K/mm3 (0.0-0.012); Nucleated Red Blood Cells Perc 0.0 % (0.0-0.2); Platelet Count Result 209 k/mm3 (150-375); Red Blood Count 4.72 M/mm3 (4.2-5.4); White Blood Count 6.7 K/mm3 (4.5-10.0)
[2025-02-15 16:01] LABS: Alanine Aminotransferase 26 U/L (6-35); Albumin Level 4.6 g/dL (3.5-5.1); Alkaline Phosphatase 50 U/L (38-126); Anion Gap 12 mmol/L (4-12); Aspartate Amino Transferase 28 U/L (14-36); Bilirubin,Total 0.7 mg/dL (0.2-1.3); Blood Urea Nitrogen 10 mg/dL (7-17); CRP < 0.5 mg/dL (<1.0); Calcium 9.6 mg/dL (8.4-10.2); Carbon Dioxide 22 mmol/L (22-30); Chloride 105 mmol/L (98-107); Cholesterol 182 mg/dL (0-200); Estimated Glomerular Filt Rate > 60; Glucose 108 mg/dL (65-110); HDL Direct 49 mg/dL; Magnesium 1.9 mg/dL (1.6-2.3); Potassium 4.2 mmol/L (3.4-5.0); Sodium 139 mmol/L (137-145); Total Protein 7.8 g/dL (6.3-8.2); Triglycerides 103 mg/dL (<150)
[2025-02-15 16:34] LABS: Thyroid Stimulating Hormone 1.310 uIU/mL (0.465-4.680)
[2025-02-15 17:09] LABS: Vitamin B12 411.0 pg/mL (239-931)
[2025-02-15 17:31] LABS: Iron 127 ug/dL (37-170)
[2025-02-15 17:41] LABS: Percent Iron Saturation 35 % (20-50)
[2025-02-15 17:50] LABS: Free T4 Free Thyroxine 1.04 ng/dL (0.78-2.19)
[2025-02-15 18:09] LABS: Ferritin 29.30 ng/mL (6.24-137)
[2025-02-15 18:20] LABS: Hemoglobin A1C 5.4 % (<5.7)
[2025-02-16 18:08] LABS: ANA by IFA Rfx Titer/Pattern Positive (.)
== END 2025-02-15 15:20 | disposition home or self-care (01) ==
LOC: ANHLAB 15:25
PROVIDERS: PCP Physician Assistant; Visit Provider Physician Assistant
DX: M25.50 Pain in unspecified joint (principal); R00.2 Palpitations; R53.83 Other fatigue; Z13.1 Encounter for screening for diabetes mellitus; Z13.220 Encounter for screening for lipoid disorders
CPT/HCPCS: 36415; 80053; 80061; 82306; 82607; 82728; 82746; 83036; 83540; 83550; 83735; 84439; 84443; 85025; 85652; 86038; 86140

== ENCOUNTER 2025-03-14 19:25 | Emergency (ER) | payer OTHER, SELFPAY ==
--- OUTSIDE RECORDS SUMMARY | 1999-07-21 08:45 | XMS_ITS | Continuity of Care Document ---
Author Organization [facility] Address [address] [place] [address] [address] [place] [address] Phone Care Team Providers Care Commutator V Ring Assembler Name Role Phone Brent Montanez Unavailable Unavailable Advance Directives Directive Yes / No Effective Date File Name No Information Encounters Encounter Description Practice Location Reason(s) For Visit Diagnoses Date Provider Providers Copied on Encounter [facility], [address] [place] [address] [address], [place], [place], [id number], [place] tel:[phone] [facility] No Information 0-200 0 Tarik Kennedy. [address] , [address], [place], [address], [place]. tel:[phone] Family History Family Member Type Diagnosis Age At Onset No Information Payers Payer name Insurance type Covered democrat ID Authoriza tion(s) No Information Social History Type Description Quantity Date Captured Comments Sex Female Smoking Status No Information Chief Complaint And Reason For Visit No Information Reason For Referral Reason For Referral No Information History Of Present Illness Encounter Date Complaint History Of Prese nt Illness No Information Functional Status Date Functional Assessmen t No Information Instructions Date Instruction Additional Infor mation No Information Assessments Type Assessment Date No Information Patient Care Teams Name Effective Dates (start - stop) Status Members No Information
--- NOTE | ~2025-03-14 | XR_ITS ---
EXAMINATION: XR chest 2V 03/14/2025 19:51 INDICATION: Chest pain PROCEDURE: 2 view chest COMPARISON: 08/30/2023 FINDINGS: The lungs are clear. The cardiomediastinal silhouette is within normal limits. There are no pleural effusions. There is no pneumothorax suspected. IMPRESSION: 1: NO ACUTE CARDIOPULMONARY DISEASE. Reviewed, dictated and finalized at location O.
--- OUTSIDE RECORDS SUMMARY | 2025-03-14 19:27 | XMS_ITS | Patient Health Record ---
Author Organization [facility] [place] ([address]) Address [address] [facility] [address] [place] [address] Care Team Providers Care Clinic Coordinator Name Role Phone Bobbi Singer Primary Care Provider UnavailCarson Finley Unavailable [phone] Allergies No Known Allergies Results Component Value Reference Range Notes CHRONIC URTICARIA Reviewed date:10/17/2024 07:45:25 AM Interpretation:Abnormal Performing Lab:[facility], [facility],, [address] [place], [address] Katrina Leyva MD,PhD,VARINDER Notes/Report: HISTAMINE RELEASE (CHRONIC URTICARIA) <16 <16 % This test was developed and its analytical performance characteristics have been determined by [facility]. It has not been cleared or approved by the FDA. This assay has been validated pursuant to the CLIA regulations and is used for clinical purposes. THYROID PEROXIDASE ANTIBODIES <1 <9 IU/mL THYROGLOBULIN ANTIBODIES 3 < OR = 1 IU/mL TSH 1.25 0.40-4.50 mIU/L Female Reference Ranges for TSH: Premature Infants, (28-36) weeks 1st week of life 0.20-27.90 mIU/L Term infants, (>37 weeks) Serum or Cord Blood 1.00-39.00 mIU/L 1-2 days 3.20-34.60 mIU/L 3-4 days 0.70-15.40 mIU/L 5 days-4 weeks 1.70-9.10 mIU/L 1-11 months 0.80-8.20 mIU/L 1-19 years 0.50-4.30 mIU/L > or = 20 years 0.40-4.50 mIU/L TSH levels decline rapidly during the first week of life in most children, but may remain transiently elevated in a few individuals despite normal free T4 levels. For proper interpretation of an abnormal TSH from a thyroid screen, a [place] T4 [place]ialysis (TC [address]) or T4, Total (Thyroxine) (TC [address]) should be considered. Ranges First Trimester 0.26-2.66 mIU/L Second Trimester 0.55-2.73 mIU/L Third Trimester 0.43-2.91 mIU/L For additional information, please refer to http://education.Tales2Go/faq/YKF745 (This link is being provided for informational/educational purposes only.) ANTI-IGE Reviewed date:10/17/2024 07:45:40 AM Interpretation:Normal Performing Lab:[facility],, [address] [place], [address] Katrina Leyva MD,PhD,VARINDER Notes/Report: IGE ANTIBODY (ANTI IGE IGG) 8 <168 ng/mL This test was developed and its analytical performance characteristics have been determined by [facility]. It has not been cleared or approved by the FDA. This assay has been validated pursuant to the CLIA regulations and is used for clinical purposes. TRYPTASE Reviewed date:10/17/2024 07:45:33 AM Interpretation:Normal Performing Lab:[facility] Pending sale to [facility], [address], [place], [address] Sterling Gonzalez M.D.,PhD Notes/Report: TRYPTASE 6.3 <11.0 mcg/L The Tryptase test, fluorescent enzyme immunoassay (FEIA), measures both the Alpha and Beta forms of Tryptase. Measuring both forms of Tryptase increases sensitivity for the diagnosis of mastocytosis, and mast cell degranulation as a cause of anaphylaxis. Reason For Referral No Information Medications Medication SIG (Take, Route, Fr equency, Duration) Notes Start Date End Date Status Famotidine 20 MG 1 tablet Orally Twic e a day; Duration: 30 days 10/03/2024 Active Cetirizine HCl 10 MG 1 tablet Orally Twi ce a day; Duration: 30 days 10/03/2024 Active Auvi-Q 0.3 MG/0.3ML as directed Injectio n as needed; Duration: 30 days 10/03/2024 Active Social History Tobacco Use: Social History Observation Description Date Details (start date - stop date) Current Smoker NA - NA Tobacco Control (Standard) Question Answer Notes Tobacco use: Current smoker How often do you smoke cigarettes? Every day Additional Findings: Tobacco user e-cigarette Problems Problem Type SNOMED Code ICD Code Onset Dates Problem Status W/U Status Risk Notes Problem Dermatographic urticaria (8886129) Dermatographic urticaria (L50.3) Active confirmed Problem Flushing (07871887) Flushing (R23.2) Active confirmed Problem Swelling of head (040343274) Localized swelling, mass and lump, head (R22.0) Active confirmed Vital Signs Blood pressure diastolic 77 mm Hg 10/03/2024 Oximetry 97 % 10/03/2024 Height 57 in 10/03/2024 Blood pressure systolic 124 mm Hg 10/03/2024 Weight 155.6 lbs 10/03/2024 BMI 33.67 kg/m2 10/03/2024 Encounters Encounter Location Date Provider Diagnosis [facility] [address] [address] 10/03/2024 Carson Greff Flushing R23.2 ; Dermatographic urticaria L50.3 and Localized swelling, mass and lump, head R22.0 Assessments Encounter Date Diagnosis (ICD Code) Assessment Notes Treatment Notes Treatment Clinical Notes Section Notes 10/03/2024 Dermatographic urticaria (ICD-10 - L50.3) Dermatogarphia noted on PE today. Treat as above 10/03/2024 Flushing (ICD-10 - R23.2) Onset of red-hot patches to the face while drinking alcohol occurring after giving to her child in May 2022. Of note, She did have COVID during her . NotedLesions are typically splotchy, red, and flat. Similar occurrence happened a few months later while also drinking. This started off inconsistently, now happening with consistent ingestion. She now experiences sporadic itchy skin after eating inconsistent food other than fairchild tomatoes causes additional red splotches around the face and itchy throat. She is able to tolerate tomato sauce without issue. These episodes occur every few days now without consistent cause. No noted SOB, wheezing, or GI symptoms. This will last for approx 1 hour before resolution. She has had some mild swelling to her upper lip as well. She will take Ibuprofen q other week without relation. She was taking Pepcid daily with some benefit. No other formal history of food allergy. Hot showers will make her skin itch though no lesions occurring though the redness will occur under her bra lines. 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 No other history of anaphylaxis. No other history of medications allergies. History is concerning for underlying direct mast cell degranulation in relation to alcohol and tomato ingestion. She was dermatographic today which could imply this being underlying CIU exacerbated by COVID and giving . Will plan to obtain CIU work-up, including to check for a baseline tryptase level to assess for MCAS given newly diagnosed POTS. Plan to starting high-dose antihistamines for now to assess benefit. Given history of mild like swelling, advised keeping AIE on hand at all times. AIE education given today. Return in one month for E&M 10/03/2024 Localized swelling, mass and lump, head (ICD-10 - R22.0) as above, Keep AIE on hand at all times 10/03/2024 Other Plan Of Treatment Pending Test Test Name Order Date CU PANEL 10/03/2024 Insurance Providers Payer Name Payer Address Payer Phone Subscriber Number Group Number Insured Name Patient Relationship to Insured Coverage Start Date Coverage End Date [facility] [address] [place] [phone] [id number] Chang Arellano Spouse - patient is the spouse of the insured Medical (General) History Medical History History ICD Code Tachycardia pots Surgical History Surgery Date(Month/Year) Uterine surgery
--- OUTSIDE RECORDS SUMMARY | 2025-03-14 19:27 | XMS_ITS | Clinical Summary ---
Author Organization [facility] [address] [facility] Address [address] [place] [address] Care Team Providers Care Eclectic Doctor Name Role Phone Bobbi Singer Primary Care Pr ovider Mateo Cardoza MD Unavailable Allergies No known active allergies Medications escitalopram [...] particular, could consider trying to see Dr. Schmidt, a health insurance assessor who also has a particular interest in [...] patient's age to complete this topic Insurance [facility] CHOICE PLUS Care Teams Eclectic Doctor Relationship Specialty Start Date End Date Bobbi Singer PA [address] [place] [address] PCP - General Physician Remote Encoding Center Manager 01/26/24 Mateo Cardoza MD [address] [place] [address] Consulting Physician Rheumatology 01/26/24
--- OUTSIDE RECORDS SUMMARY | 2025-03-14 19:27 | XMS_ITS | Clinical Summary ---
Author Organization [facility] [address] [facility] Address [address] [place] [address] Care Team Providers Care Back Tufter Name Role Phone Unavailable Primary Care Provider Unavailabl e Allergies No known active allergies Medications metoprolol tartrate (LOPRESSOR) 25 mg tabletIndicatio ns:abdominal pain with cramps Take 0.5 Tablets (12.5 mg) by mouth 2 times daily as needed (Palpitation s). 30 Tablet 2 06/21/2024 Active Active Problems Patient Care Coordination No te Formatting of this note migh t be different from the original. Conference Translator-Dr Pa[facility] [address] [facility] [address] [place] [address] No known active problems Encounters Date Type Department Care Team Description 02/27/2025 External Device Data [facility] ABSTRACTION Provider, Abstract 02/27/2025 External Device Data [facility] ABSTRACTION Provider, Abstract 02/13/2025 External Device Data [facility] ABSTRACTION Provider, [...] Comments Blood Pressure 102/60 06/21/2024 3:47 PM MATERIALS ASSOCIATE Pulse 85 06/21/2024 3:47 PM MATERIALS ASSOCIATE Temperature - - Respiratory Rate - - Oxygen Saturation 98% 06/21/2024 3:47 PM MATERIALS ASSOCIATE Inhaled Oxygen Concentration - - Weight 68 kg (150 lb) 06/21/2024 3:47 PM MATERIALS ASSOCIATE Height 149.9 cm (4' 11) 06/21/2024 3:47 PM MATERIALS ASSOCIATE Body Mass Index 30.3 06/21/2024 3:47 PM MATERIALS ASSOCIATE Plan of Treatment Health Maintenance Due Date Last Done Comments DTAP/TDAP/TD VACCINES (1 - Tdap) 2009 HEPATITIS B VACCINES (1 of 3 - 19+ 3-dose series) 06/11 HPV/Cotest (21-29) 2011 HPV VACCINES (1 - 3-dose SCDM series) 2017 CERVICAL CANCER SCREENING 2020 HPV/Cotest (30-65) 2020 PAP SMEAR 2020 INFLUENZA VACCINE (#1) 2025 Insurance Member Subscriber Plan / Payer (Ef fective 2023-Present) Name:VINEET KUMAR Relation to Subscriber:Spouse Name:ABRAHAM KUMARE Zulma Date of :1987 (Home) Address: [address] [place] [address] Payer ID:[id number] (NAIC) Type:DRAKE Address: [facility] [id number] [place] [id number]
--- NOTE | 2025-03-14 19:29 | ECG_ITS ---
Test Date: 2025-03-14 19:36:47 Measurements Intervals [place] Rate: 76 P: 24 [place]: 138 QRS: 19 QRSD: 86 T: 15 QT: 366 QTc: 413 Interpretive Statements SINUS RHYTHM Compared to ECG 02/19/2024 16:20:30 T-wave abnormality no longer present Electronically Signed On 03-15-2025 11:32:03 CDT by [place] Loo M.D.
[2025-03-14 19:38] VITALS: BP 106/73; PULSE 74; RESP 13; TEMP 36.7; O2SAT 100
[2025-03-14 19:42] VITALS: O2SAT 100
[2025-03-14 19:43] VITALS: PULSE 74
[2025-03-14 19:44] LABS: Hematocrit 41.4 % (37.0-47.0); Hemoglobin 13.4 g/dL (12.0-15.0); Immature Granulocyte Percent A 0.6 % (0-0.5); Lymphocytes Absolute Auto 1.82 K/mm3 (0.9-3.2); Mean Corpuscular HGB Conc 32.4 g/dl (32-36); Mean Corpuscular Hemoglobin 29.1 pg (26-34); Mean Corpuscular Volume 90.0 fl (80-100); Nucleated Red Blood Cells Absolute Auto 0.000 K/mm3 (0.0-0.012); Nucleated Red Blood Cells Perc 0.0 % (0.0-0.2); Platelet Count Result 222 k/mm3 (150-375); Red Blood Count 4.60 M/mm3 (4.2-5.4); White Blood Count 8.5 K/mm3 (4.5-10.0)
[2025-03-14 19:53] LABS: Alanine Aminotransferase 32 U/L (6-35); Albumin Level 4.5 g/dL (3.5-5.1); Alkaline Phosphatase 55 U/L (38-126); Anion Gap 25 mmol/L (4-12); Aspartate Amino Transferase 30 U/L (14-36); Bilirubin,Total 0.5 mg/dL (0.2-1.3); Blood Urea Nitrogen 8 mg/dL (7-17); Calcium 9.8 mg/dL (8.4-10.2); Carbon Dioxide 25 mmol/L (22-30); Chloride 104 mmol/L (98-107); Estimated Glomerular Filt Rate > 60; Glucose 104 mg/dL (65-110); Potassium 3.8 mmol/L (3.4-5.0); Sodium 154 mmol/L (137-145); Total Protein 7.5 g/dL (6.3-8.2)
[2025-03-14 19:54] LABS: INR 1.0; Prothrombin Time 12.8 Seconds (11.1-14.7)
[2025-03-14 19:55] LABS: Partial Thromboplastin Time 26.5 Seconds (22.3-36.8)
[2025-03-14] MEDS: ASPIRIN 81 MG CHEWABLE TABLET 324 MG PO (20:04)
[2025-03-14 20:05] LABS: Lipase 186 U/L (23-300); Troponin I < 0.012 ng/mL (0.000-0.034)
--- NOTE | 2025-03-14 20:15 | ED.GENADULT ---
HPI - General Adult General Chief complaint: Chest Pain Stated complaint: chest pain, POTS & IST Time Seen by Provider: 03/14/25 19:57 History of Present Illness HPI narrative: This is a 34-year-old female presenting for chest pain. Patient says that she has a sharp stabbing pain in the left side of her chest. Is been going on for the last 2 days. The pain comes on and lasts a few seconds at a time. He has had been more than 20 but less than 100 times today. She feels this increasing in frequency. It is not associated with shortness of breath cough fevers diaphoresis exertion lower extremity edema. She has no risk factors for DVT PE. Patient had a viral illness 2 weeks ago. Related Data Allergies Allergy/AdvReac Type Severity Reaction Status Date / Time No Known Allergies Allergy Verified 07/11/24 18:16 [facility] Past Medical History Medical History Obesity (BMI 30-39.9) Healthy adult Surgical History Surgical History H/O gynecological procedure 02/01/23 Hysteroscopy with D&C No pertinent past surgical history Family History Family History Grandparent Graves' disease CHF (congestive heart failure) Mother Malignant tumor of ovary Father Epilepsy Social History Social History Smoking status: Current every day smoker Tobacco type: e-cigarettes/vaping Alcohol intake: current Alcohol use details: VERY RARE Substance use: never Substance use type: does not use Current Housing: Decline to Answer Concerned About Future Housing: Decline to Answer Difficulty Paying Gas/Electric Bills: Decline to Answer Difficulty Paying for Meds: Decline to Answer Currently Unemployed: Decline to Answer Education: Decline to Answer Difficulty w/ Childcare or Family Care: Decline to Answer Living arrangements: with family Occupation/Education: occupation Gender identity (if verbalized by the patient): Female Sexual Orientation (if Verbalized by the Patient): Straight or Heterosexual Spiritual care concerns: No Exam Narrative: APPEARANCE: No apparent distress. Head: atraumatic. EYES: EOMI, NOSE: Atraumatic NECK: Trachea midline RESPIRATORY: No increased rate of breathing, CTAB CARDIOVASCULAR: RRR, peripheral edema ABDOMINAL: Non-distended soft nontender MUSCULOSKELETAl: No obvious deformities NEURO: Alert. Moving 4/4 extremities SKIN:: Warm, dry. Normal color PSYCHIATRIC: Normal affect Course Vital Signs Vital signs: Vital Signs Temperature 98.0 F 03/14/25 19:38 Pulse Rate 74 03/14/25 19:38 Respiratory Rate 13 03/14/25 19:38 Blood Pressure 106/73 03/14/25 19:38 Pulse Oximetry 100 03/14/25 19:38 Oxygen Delivery Room Air 03/14/25 19:38 Temperature 98.0 F 03/14/25 19:38 Pulse Rate 74 03/14/25 19:43 Respiratory Rate 03/14/25 19:38 Blood Pressure 106/73 03/14/25 19:38 Pulse Oximetry 100 03/14/25 19:42 Oxygen Delivery Room Air 03/14/25 19:42 Medical Decision Making MDM Narrative Medical decision making narrative: -Course: 34-year-old female pending with left-sided chest pain. Patient is well-appearing on exam. Stable vitals. He has no per pertinent exam findings. Perc negative. She had a viral illness 2 weeks ago to this is likely pleurisy. Chest x-ray was clear. Troponin was undetectable x2. Presentation most consistent with pleurisy. Patient has a sodium of 155. Patient states that she takes and a large amount of sodium due to her POTS. This is unrelated to her current condition and she is asymptomatic. This can be followed by her primary care physician. Patient signed out pending troponin. If this is negative patient can be discharged to follow up with PCP. 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, pots, high AST Vital Signs Vital Signs: Vital Signs Temperature 98.0 F 03/14/25 19:38 Pulse Rate 74 03/14/25 19:38 Respiratory Rate 03/14/25 19:38 Blood Pressure 106/73 03/14/25 19:38 Pulse Oximetry 100 03/14/25 19:38 Oxygen Delivery Room Air 03/14/25 19:38 Temperature 98.0 F 03/14/25 19:38 Pulse Rate 74 03/14/25 19:43 Respiratory Rate 13 03/14/25 19:38 Blood Pressure 106/73 03/14/25 19:38 Pulse Oximetry 100 03/14/25 19:42 Oxygen Delivery Room Air 03/14/25 19:42 Lab Data 03/14/25 19:37 03/14/25 19:37 Labs: Lab Results 03/14/25 Range/Units 19:37 WBC 8.5 (4.5-10.0) K/mm3 RBC 4.60 (4.2-5.4) M/mm3 Hgb 13.4 (12.0-15.0) g/dL Hct 41.4 (37.0-47.0) % MCV 90.0 (80-100) fl MCH 29.1 (26-34) pg MCHC 32.4 (32-36) g/dl RDW 13.5 (11.5-14.5) % Plt Count 222 (150-375) k/mm3 MPV 10.7 H (7.4-10.4) fl Immature Gran % (Auto) 0.6 H (0-0.5) % Neut % (Auto) 69.5 (45.5-73.1) % Lymph % (Auto) 21.4 (18.3-44.2) % Payette % (Auto) 7.9 (2.6-8.5) % Eos % (Auto) 0.2 (0-4.4) % Baso % (Auto) 0.4 (0.2-1.2) % Lymph # (Auto) 1.82 (0.9-3.2) K/mm3 Payette # (Auto) 0.7 H (0.1-0.6) K/mm3 Eos # (Auto) 0.0 (0-0.3) K/mm3 Baso # (Auto) 0.0 (0.0-0.1) K/mm3 Abs Immat Gran (auto) 0.05 H (0.00-0.031) K/mm3 Absolute Neuts (auto) 5.9 (1.3-6.7) K/mm3 Absolute Nucleated RBC 0.000 (0.0-0.012) K/mm3 Nucleated RBC % 0.0 (0.0-0.2) % PT 12.8 (11.1-14.7) Seconds INR 1.0 APTT 26.5 (22.3-36.8) Seconds Sodium 154 H (137-145) mmol/L Potassium 3.8 (3.4-5.0) mmol/L Chloride 104 (98-107) mmol/L Carbon Dioxide 25 (22-30) mmol/L Anion Gap 25 H (4-12) mmol/L BUN 8 (7-17) mg/dL Creatinine 0.64 L (0.7-1.0) mg/dL Estim Creat Clear Calc Not Reportable Estimated GFR > 60 (59 - ) Glucose 104 (65-110) mg/dL Calcium 9.8 (8.4-10.2) mg/dL Total Bilirubin 0.5 (0.2-1.3) mg/dL AST 30 (14-36) U/L ALT 32 (6-35) U/L Alkaline Phosphatase 55 (38-126) U/L Troponin I < 0.012 (0.000-0.034) ng/mL Total Protein 7.5 (6.3-8.2) g/dL Albumin 4.5 (3.5-5.1) g/dL Lipase 186 (23-300) U/L Discharge Plan Discharge Clinical Impression: Pleurisy, Hypernatremia Patient Disposition: Home Condition: Stable Instructions: Antibiotic Form, Pleurisy (ED) Additional Instructions: Please use Motrin and Tylenol as needed for pain. Please follow-up with your primary care physician. Return if you develop severe pain, difficulty breathing or fevers. Your sodium was elevated at 154. This is likely due to her high salt diet due to POTS. Please follow-up with your primary care physician next 24-48 hours for repeat lab work. Patient Language: Jamaican Prescriptions: No Action 1 mg-20 mcg (24)/75 mg (4) tablet 1 tablet PO DAILY Qty: 84 3RF escitalopram oxalate 10 mg Tablet 10 mg PO DAILY Qty: 90 3RF meclizine 25 mg tablet 25 mg PO BID PRN (Reason: dizziness) Qty: 20 0RF Follow-up/Referrals: Lucrecia,JATIN Martines [Primary Care Provider, Unknown]
[2025-03-14] MEDS: KETOROLAC 15 MG/ML VIAL (*BKC) IV PUSH (20:31)
[2025-03-14] MEDS: ACETAMINOPHEN 500 MG TABLET 1000 MG PO (20:31)
[2025-03-14 21:36] VITALS: BP 107/51; PULSE 69; RESP 19; O2SAT 100
--- NOTE | 2025-03-14 22:37 | ECG_ITS ---
Test Date: 2025-03-14 22:36:44 Measurements Intervals [place] Rate: 69 P: 29 TN: 158 QRS: 20 QRSD: 77 T: 14 QT: 376 QTc: 404 Interpretive Statements SINUS RHYTHM WITH SINUS ARRHYTHMIA NONSPECIFC ST SEGMENT CHANGES Compared to ECG 03/14/2025 19:36:47 No significant changes Electronically Signed On 03-15-2025 11:34:13 CDT by Benton Loo M.D.
--- NOTE | 2025-03-14 22:38 | PC.NURSE ---
[employer] tech attempted to obtain 3hr troponin x1. Pt refusing to be stuck again to obtain blood sample. 3hr EKG completed.
[2025-03-14 22:47] VITALS: BP 107/66; PULSE 72; RESP 16; O2SAT 98
== END 2025-03-14 22:53 | disposition home or self-care (01) ==
PROVIDERS: Student in an Organized Health Care Education/Training Program; Emergency Provider Emergency Medicine; PCP Physician Assistant
DX: R09.1 Pleurisy (principal); E87.0 Hyperosmolality and hypernatremia; F17.290 Nicotine dependence, other tobacco product, uncomplicated
CPT/HCPCS: 36415; 71046; 80053; 83690; 84484; 85025; 85610; 85730; 93005; 96374; 99284; A9270; J1885

== ENCOUNTER 2025-04-10 09:15 | Outpatient (CLI) | payer OTHER, SELFPAY ==
--- OUTSIDE RECORDS SUMMARY | 1999-07-21 08:45 | XMS_ITS | Continuity of Care Document ---
Author Organization [facility] Address [address] [place] [address] [address] [place] [address] Phone Care Team Providers Care Boilermaker Fitter Name Role Phone Brent Montanez Unavailable Unavailable Advance Directives Directive Yes / No Effective Date File Name No Information Encounters Encounter Description Practice Location Reason(s) For Visit Diagnoses Date Provider Providers Copied on Encounter [facility], [address] [place] [address] [address], [place], [place], [id number], [place] tel:[phone] [facility] No Information 0-200 0 Tarik Kennedy. [address] [facility] [address] , [address], [place], [address], [place]. tel:[phone] Family History Family Member Type Diagnosis Age At Onset No Information Payers Payer name Insurance type Covered alliance party ID Authoriza tion(s) No Information Social History [...]
--- NOTE | ~2025-04-10 | XR_ITS ---
EXAMINATION: XR elbow RT 2V, 04/10/2025 9:48 CDT HISTORY: RIGHT ELBOW PAIN COMPARISON: No comparisons available. Findings: No acute fracture or malalignment. No significant degenerative changes. Soft tissues unremarkable. Impression: No acute fracture or malalignment. Reviewed, dictated and finalized at location P. Impression: No acute fracture or malalignment.
--- OUTSIDE RECORDS SUMMARY | 2025-04-10 09:48 | XMS_ITS | Clinical Summary ---
Author Organization [facility] [id number] [facility] Address [address] [place] [address] Care Team Providers Care Scale And Skip Car Operator Name Role Phone Unavailable Primary Care Provider Unavailabl e Allergies No known active allergies Medications metoprolol tartrate (LOPRESSOR) 25 mg tabletIndicatio ns:abdominal pain with cramps Take 0.5 Tablets (12.5 mg) by mouth 2 times daily as needed (Palpitation s). 30 Tablet 2 06/21/2024 Active Active Problems Patient Care Coordination No te Formatting of this note migh t be different from the original. Processes Chemical Design Engineer-Dr Paige [facility] [id number] [facility] [address] [place] [address] No known active problems Encounters Date Type [...] Comments Blood Pressure 102/60 06/21/2024 3:47 PM SENIOR SQL DATABASE DEVELOPER Pulse 85 06/21/2024 3:47 PM SENIOR SQL DATAB[employer] DEVELOPER Temperature - - Respiratory Rate - - Oxygen Saturation 98% 06/21/2024 3:47 PM SENIOR SQL DAT[employer] DEVELOPER Inhaled Oxygen Concentration - - Weight 68 kg (150 lb) 06/21/2024 3:47 PM SENIOR SQL DATABASE DEVELOPER Height 149.9 cm (4' 11) 06/21/2024 3:47 PM SENIOR SQL DATABASE DEVELOPER Body Mass Index 30.3 06/21/2024 3:47 PM SENIOR SQL DATABASE DEVELOPER Plan of Treatment Health Maintenance Due Date Last Done Comments DTAP/TDAP/TD VACCINES (1 - Tdap) 2009 HEPATITIS B VACCINES (1 of 3 - 19+ 3-dose series) 06/11 HPV/Cotest (21-29) 2011 HPV VACCINES (1 - 3-dose SCDM series) 2017 CERVICAL CANCER SCREENING 2020 HPV/Cotest (30-65) 2020 PAP SMEAR 2020 INFLUENZA VACCINE (#1) 2025 Insurance
--- OUTSIDE RECORDS SUMMARY | 2025-04-10 09:48 | XMS_ITS | Clinical Summary ---
Author Organization [facility] [address] Address [address] [place] [id number] Care Team Providers Care Employee Placement Specialist Name Role Phone Bobbi Singer Primary Care [...] consider trying to see Dr. Schmidt, a carpenter inspector who also has a particular interest in [...] patient's age to complete this topic Insurance [facility] [employer] Care Teams Employee Placement Specialist Relationship Specialty Start Date End Date Bobbi Singer PA [address] [place] [address] PCP - General Physician Scaleman 01/26/24 Mateo Cardoza MD [address] [place] [address] Consulting Physician Rheumatology 01/26/24
--- OUTSIDE RECORDS SUMMARY | 2025-04-10 09:50 | XMS_ITS | Data Portability ---
Author Organization [facility] [address] [facility] [place] [address] Assessment No assessment recorded. Plan of Treatment Reminders Order Date Submit Date Provider Last Modified By Organization Details Last Modified Time Details Appointments ANY 15 2024 02:30P M CHAD Coffman Not available Not available Not available Lab magnesium , serum or plasma 2023 024 [facility] Outpatient Registration Lab/Ekg, [facility] [address], [place], [address], 01/17/2024 15:40:15 lipid panel, serum 2023 024 [facility] Outpatient Registration Lab/Ekg, [address], [place], [address], 01/04/2024 15:46:53 vitamin B12 + folate, serum or blood [address] Outpatient Registration Lab/Ekg, [address], [place], [address], 01/18/2024 11:16:27 iron + TIBC + ferritin, serum 2023 024 [facility] Outpatient Registration Lab/Ekg, [address] [facility] [address], [place], [address], 01/04/2024 17:51:22 vitamin D, 25-hydrox y, total, serum [address] Outpatient Registration Lab/Ekg, [address] [facility] [address], [place], [address], 01/18/2024 11:16:27 CMP, serum or plasma 2023 024 [facility] Outpatient Registration Lab/Ekg, [address], [place], [address], 01/04/2024 15:46:53 CBC w/ auto diff 2023 024 [facility] Outpatient Registration Lab/Ekg, [facility], [place], [address], 01/17/2024 15:39:42 TSH + free T4, serum 2023 024 [facility] Outpatient Registration Lab/Ekg, [facility] [address], [place], [address], 01/04/2024 15:46:53 erythrocy te sedimenta tion rate by westergre n method [address] Outpatient Registration Lab/Ekg, [facility], [place], [address], 01/18/2024 14:25:04 rf (rheumato id factor) + anti-ccp abs, serum 2023 024 [facility] Outpatient Registration Lab/Ekg, [facility] [address], [place], [address], 01/06/2024 15:37:21 C reactive protein, QN, serum or plasma 2023 024 [facility] Outpatient Registration Lab/Ekg, [address] [facility] [address], [place], [address], 01/17/2024 15:41:42 JEFF (antinucl ear antibodie s) panel, serum 2023 024 [facility] Outpatient Registration Lab/Ekg, [facility] [address], [place], [address], 01/07/2024 15:35:38 HbA1c (hemoglob in A1c), blood 2023 024 [facility] Outpatient Registration Lab/Ekg, [address], [place], [address], 01/04/2024 15:46:53 Referral gastroent erologist referral 2024 025 [place], [address], [address] [address], [place], [address], 02/01/2025 22:47:55 acid tender & immunolog ist referral 2024 025 [facility], [address], [place], [address], 10/04/2024 20:07:21 cardiolog ist referral 2023 024 [facility] Kristina Martinez MD, [address] [facility], [address], [place], [address], 04/12/2024 11:57:17 Procedures None recorded. Surgeries None recorded. Imaging None recorded. Medication Orders Orabase (benzocai ne) 20 % mucosal paste 2023 025 [id number], [address] [place], [place], [phone], 07/28/2024 14:19:02 amoxicill in 875 mg-potass ium clavulana te 125 mg tablet 2023 024 [id number], [address] [place], [place], [phone], 02/21/2024 14:49:05 Patient TargetsNo targets recorded. Patient Instructions Encounter Date Encounter Id Patient Instructions Last Modified By Organization Details Last Modified Time 07/28/2024 [id number] A healthy lifestyle: care instructions [email or web address] Not available 07/28/2024 14:53:31 Reason for Referral Tire Bagger Referral for Di zziness Referring Physician: Bobbi Singer, Internal Medicine, Encounter Date: 12/20/2023 Outside Solar Sales Consultant Referral for Chronic diarrhea Referring Physician: Bobbi Singer Internal Medicine, Encounter Date: 07/28/2024 Metal Engineering Process Worker & Field Observer Ref erral for Allergic disposition Referring Physician: Bobbi Singer Internal Medicine, Encounter Date: 07/28/2024 Results Created Date Observation Date Name Description Value Unit Range Abnormal Flag Note LastModifiedBy Organization Detail LastModifiedTime 08/01/1907/31/2024 MRI, brain + inter nal audit ory canal , w/wo contr ast No observ ation record ed. [facility] [address] [facility], [place], [address], 08/02/2024 13:38:37 Result Notes None recorded. Problems Name Problem SNOMED Code Status Onset Date Resolution Date Notes Provider Name and Address Organization Details Recorded Time Nicotine-fille d electronic cigarette user 739172430 Active 2023 CHAD Coffman Attn: Darrion g,[address] [facility], [place], [address], [facility] 4 23:55:43 Pain of multiple joints 98862771 Active 2023 CHAD Coffman Attn: Darrion g,[address] [facility], [place], [address], [place] [facility] 4 23:56:30 Intermittent palpitations 639184686 Active 2023 CHAD Coffman Attn: Jamiein g,[address] [facility], [place], [address], [place] [facility] 4 23:56:31 Fatigue 19350391 Active 2023 CHAD Coffman Attn: Darrion g,[address] [facility], [place], [address], [place] [facility] 4 23:56:32 Dizziness 775606796 Active 2023 CHAD Coffman Attn: Darrion gallagher,[address], [place], [address], [facility] - [facility] 4 23:57:14 Body mass index 30+ - obesity 697453488 Active 2023 Evelyn Hernandez [facility], [place] - [place] 4 14:51:22 Obesity 706682819 Active 2024 CHAD Coffman Attn: Darrion gallagher,[address], [place], [address], [facility] - [facility] 5 15:47:40 Problem Notes None recorded. Procedures Surgical History Date Name Laterality Status Provider Name and Address Organization Details Recorded Time 3 dilation and curettage of uterus completed Josey Orellana MA [facility] 12/20/2023 12:25:31 Imaging Results None recorded. Procedure Notes None recorded. Medical Equipment None Reported. Allergies No known drug allergies Medications Name Sig Start Date Stop Date Status Note LastModified by Organization Details LastModified Time nadolol 20 mg tablet TAKE 1 TABLET BY MOUTH DAILY active Not Available Not Available No t Available fludrocort isone 0.1 mg tablet TAKE 1 TABLET BY MOUTH DAILY active Not Available Not Available No t Available amoxicilli n 875 mg-potassi um clavulanat e 125 mg tablet TAKE 1 TABLET BY MOUTH EVERY 12 HOURS 02/20 completed Not Available Not Available Not Available escitalopr am 10 mg tablet Take 1 tablet every day by oral route. 07/28 completed pt states that she wanted to come off of it Not Available Not Available Not Available Orabase (benzocain e) 20 % mucosal paste apply to gum-line ulcer 5 times daily. 07/28 completed Not Available Not Available Not Available ivabradine 5 mg tablet TAKE 1 TABLET BY MOUTH TWICE DAILY active Not Available Not Available No t Available BinaxNOW COVID-19 Ag Self Test kit TEST DIRECTED TODAY active Not Available Not Available No t Available Vitals Date Recorded Respiratory rate Heart rate Systolic And Diastolic Provider Name and Address Organization Details Last Updated DateTime 07/28/2024 16 /min 88 /min 108/70 mm[Hg] CHAD Coffman Attn: Accounting, [address] [facility], [place], [address], [facility] 07/28/2024 14:53:56 Date Recorded Body height Body mass index (BMI) Body weight Oxygen saturation Oxygen saturation in Arterial blood by Pulse oximetry Heart rate Systolic And Diastolic Provider Name and Address Organization Details Last Updated DateTime 5 149.86 cm 30.7 kg/m2 76157.0 4 g 99 % 99 % 104 /min 112/72 mm[Hg] Dereck Lopez MA [facility] 5 14:22:01 Date Recorded Body weight Body mass index (BMI) Body height Heart rate Oxygen saturation Oxygen saturation in Arterial blood by Pulse oximetry Systolic And Diastolic Provider Name and Address Organization Details Last Updated DateTime 4 74714.1 1 g 30 kg/m2 149.86 cm 82 /min 99 % 99 % 114/72 mm[Hg] Josey Orellana MA [facility] 4 12:27:48 Date Recorded Body height Body mass index (BMI) Body weight Respiratory rate Oxygen saturation Oxygen saturation in Arterial blood by Pulse oximetry Heart rate Body temperature Systolic And Diastolic Provider Name and Address Organization Details Last Updated DateTime 4 149.86 cm 30.8 kg/m2 26119.4 8 g 16 /min 98 % 98 % 87 /min 98.8 [degF] 110/72 mm[Hg] Evelyn Hernandez [facility] 4 14:55:20 Social History Question Answer Notes LastModified by Organizat ion Details LastModified Time Tobacco Smoking Status Never Smoker Josey Orellana MA null, [facility] 12/20/2023 12:23:02 Do You Have An Advance Directive? No Information not available 12/20/2023 How Many Years Have You Consumed Alcohol? 12 Information not available 12/20/2023 Are You Blind Or Do You Have Difficulty Seeing? Yes Contacts Information not available 12/20/2023 What Is Your Level Of Caffeine Consumption? Moderate Coffee, Diet Coke Information not available 12/20/2023 In The 14 Days Before Symptom Onset, Have You Had Close Contact With A Laboratory-confir med COVID-19 While That Case Was Ill? No Information not available 12/20/2023 In The 14 Days Before Symptom Onset, Have You Had Close Contact With A Person Who Is Under Investigation For COVID-19 While That Person Was Ill? No Information not available 12/20/2023 Have You Been To An Area Known To Be High Risk For COVID-19? No Information not available 12/20/2023 Are You Deaf Or Do You Have Serious Difficulty Hearing? 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 REGULAR Information not available 12/20/2023 Are There Any Guns Present In Your Home? No Information not available 12/20/2023 What Was The Date Of Your Most Recent Tobacco Screening? 07/28/2024 [email or web address] Information not available 07/28/2024 What Is Your Relationship Status? Information not available 12/20/2023 Do You Use Your Seat Belt Or Car Seat Routinely? Yes Information not available 12/20/2023 Do You Have Smoke And Carbon Monoxide Detectors In Your Home? Yes Information not available 12/20/2023 Do You Use Sunscreen Routinely? Yes Information not available 12/20/2023 Has Tobacco Cessation Counseling Been Provided? No Information not available 12/20/2023 How Many Years Have You Used E-cigarettes Or Vape? 12 Information not available 12/20/2023 Sex: Female Functional Status Question Answer Note LastModified by Organizat ion Details LastModified Time Do you use any illicit or recreational drugs? No Information not available 12/20/2023 Do you or have you ever used any other forms of tobacco or nicotine? Yes Information not available 12/20/2023 What is your level of alcohol consumption? Occasional Information not available 12/20/2023 Do you or have you ever used smokeless tobacco? Never used smokeless tobacco Information not available 12/20/2023 Are you currently employed? Yes Information not available 12/20/2023 Are you able to care for yourself independently? 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 Current user of electronic cigarettes Information not available 12/20/2023 What is your exercise level? Occasional Information not available 12/20/2023 Mental Status Question Answer Note LastModified by Organization D etails LastModified Time Do you feel stressed (tense, restless, nervous, or anxious, or unable to sleep at night)? [id number] Information not available 12/20/2023 Family History Relationship Description Onset Age of this Age Resolved Age Notes LastModified by Organization Details LastModified Time Father Heart disease [email or web address] Not available 2023 12:21:32 Father Hypercholest erolemia mebyma Not available 2023 12:21:37 Father Hypertensive disorder mebyma Not available 2023 12:21:42 Mother Migraine mebyma Not available 0 12/20/2023 12:21:47 Mother Malignant neoplasm of ovary mebyma Not available 2023 12:21:53 Mother Malignant neoplasm of skin mebyma Not available 2023 12:22:05 Medical History Condition Response Anxiety Disorder Y Gynecological History Statement/Question Response Flow Heavy Date of LMP 07/25/2024 Frequency of Cycle (Q days) 28 Menses Monthly Y Current Control Method None LMP Definite Obstetrics History GPAL:G 1 P 0 0 0 1 Type Value Living 1 Total 1 Immunizations Vaccine Type Date Status Note Provider Nam e and Address Organization Details Recorded Time Influenza, split virus, quadrivalent, preservative 9 completed Dereck Lopez [place] null, [place] [facility] 07/28/2024 14:19:08 COVID-19, mRNA, LNP-S, PF, 30 mcg/0.3 mL dose 1 completed Dereck Lopez [place], [place] [facility] 07/28/2024 14:19:08 COVID-19, mRNA, LNP-S, PF, 30 mcg/0.3 mL dose 1 yolanda Lopez, MA null, [place] - [facility] 07/28/2024 14:19:08 Tdap 6 completed PENG [place], [place] - [facility] 07/28/2024 14:19:08 Tdap 2 completed PENG [place], [place] - [facility] 07/28/2024 14:19:08 Influenza, split virus, quadrivalent, PF 0 completed PENG [place], [place] - [facility] 07/28/2024 14:19:08 Influenza, split virus, quadrivalent, PF 2 completed PENG [place], [place] - [facility] 07/28/2024 14:19:08 Past Encounters Encounter ID Performer Location Encounter Start Date Encounter Closed Date Diagnosis/Indication Diagnosis SNOMED-CT Code Diagnosis ICD10 Code Diagnosis IMO Codes Diagnosis Note [id number] Nuno Moreland MD [facility] [address] [place] [address] 12/20/2023 12:07:33 12/20/2023 12:59:13 Dizziness 218113795 R42 refer to cardiologi st for evaluation , in particular possible POTS syndrome. Fatigue 33816035 R53.83 full fatigue lab panel ordered including TFTs, iron studies, vit D, cmp, cbc Nicotine-f illed electronic cigarette user 834929028 Z72.89 Pain of mu ltiple joints 33721775 M25.50 screening ESR, CRP, RA and JEFF panels ordered Intermitte nt palpitations 219233870 R00.2 screening magnesium lab ordered. Parotitis 31577028 K11.2 0 Rx for augmentin course which has worked well on other episodes Cholesterol screening 27 4117413 Z13.220 fasting lipids due Diabetes m ellitus screening 978999381 Z13.1 annual a1c screening due [id number] Nuno Moreland MD [facility] [address] [place] [address] 02/21/2024 14:45:38 02/21/2024 15:27:04 Ulceration of gingivae 89795642 K06.8 Start Orabase mucosal paced 5 times daily as directed. [id number] Nuno Moreland MD [facility] [address] [place] [address] 07/28/2024 14:10:45 07/28/2024 15:41:16 Body mass index 30+ - obesity 467014315 Z68.30 BMI is 30.7 Obesity 473434824 E66.9 Chronic diarrhea 6061160 09 K52.9 Refer to gastroente rology for formal evaluation in her chronic diarrhea symptoms Allergic disposition 609 856599 T78.40XD Patient is concerned overall with her allergic dispositio n and allergy and sensitivit y responses to several foods and environmen t triggers. She is concerned specifical ly with being evaluated formally for mast cell activation syndrome. We will refer her to Allergy and immunology to excelsior picker on this topic and advanced testing. Dizziness 210681490 R42 Patient continues to have dizziness question if this is related to POTS type symptom presentati on Bilateral tinnitus 79817 42047 102 H93.13 Patient continues to have bilateral tinnitus Fatigue 74754707 R53.83 Patient continues with chronic fatigue Alteration in heart rate 065791068 R00.9 Patient continues with symptoms of alteration in heart rate which once again is at times consistent with the Thorpe presentati on Pain of mu ltiple joints 38591860 M25.50 Patient was consulted by Rheumatolo gy they did not feel that she had any rheumatolo gic condition responsibl e for her joint pain. Health Concerns Section Related Observation LastModified by Organization Detai ls LastModified Time None Recorded Concern Status LastModified by Organization Details LastModified Time None Recorded Advance Directives Directive N: Payers Insurance Date Sequence Insurance Name Policy Number Policy Camarena Covered Member ID Camarena Member ID Guarantor Name 03/12/2025 1 [facility] Chang Vincent [id number] Barbara Diggs Notes Date Note Type Note Provider Name and Address Organization Details Recorded Time 12/20/2023 text/html She thinks that she has POTS: symptoms include: dizziness, fatigue are constant; this symptoms come and go :abdominal pain, racing heart , palpitations, joint pain, back pain, night sweats, jump in heart rate with showering or standing up, headaches, arm arches, increased anxiety, brain fog, floaters in vision, tinnitus, hot flashes in face, tingling in hands and feet, heat intolerance, near syncope feeling after bending over, out of breath easily, worse after standing prolonged times, worse on menstrual cycle and some diarrhea. Pt is stable on lexapro 10mg daily. CHAD Coffman Attn: Accounting, [facility], [place], [address], [facility] 01/06/2024 23:57:36 02/21/2024 text/html Generic HPI TemplateReported by PatientPt states she got a sore in her mouth on Wednesday. She hasnt done anything for it yet. Then yesterday she woke up and her lymph nodes on the L side of her neck are swollen. No sinus issues. CHAD Coffman Attn: Accounting, [facility], [place], [address], [facility] 03/11/2024 16:54:45 07/28/2024 text/html Generic HPI TemplateReported by Patientallergic reaction- States that she thinks it came from something that she has eaten; unable to drink alcohol, eat chocolate, tomatoes, and the other day after eating pizza rolls, has throat itchiness and red throat, tingling around lips and abdominal pain.sx- Pt. states that she gets itchiness in the back of the throat, redness to the face, tingling around the lips and hot touch on her face, red patches/ No swellingpatient fees like she runs out of breath easy.Any otc meds-Pt has tried pepcid acPatient reports she is having ongoing diarrhea as well and is interested in being referred formally to GI doctor.Patient continues to have ear ringing bilaterally and dizziness that she has seen Cardiology and specialist for. She continues to have fatigue and alteration in her heart rate and joint pain. They felt that she did not have any rheumatologic condition when she saw the channel business manager. She still does not have any answers and is just seeking some type of specialist evaluation that can help her find some type of management to all of her symptoms. Particular she is concerned about mast cell activation syndrome and would like to see an acid tender and priming machine operator. CHAD Coffman Attn: Accounting,[address] [facility], [place], [address], [facility] 08/13/2024 15:48:00 OBGyn Episode No OBEpisode recorded.
[2025-04-10 10:14] LABS: Anion Gap 10 mmol/L (4-12); Blood Urea Nitrogen 12 mg/dL (7-17); CRP < 0.5 mg/dL (<1.0); Calcium 9.3 mg/dL (8.4-10.2); Carbon Dioxide 24 mmol/L (22-30); Chloride 103 mmol/L (98-107); Estimated Glomerular Filt Rate > 60; Glucose 103 mg/dL (65-110); Potassium 3.9 mmol/L (3.4-5.0); Sodium 137 mmol/L (137-145)
== END 2025-04-10 09:16 | disposition home or self-care (01) ==
LOC: ANHLAB 09:18
PROVIDERS: PCP Physician Assistant; Visit Provider Internal Medicine Interventional Cardiology
DX: M25.521 Pain in right elbow (principal); E87.0 Hyperosmolality and hypernatremia; R07.9 Chest pain, unspecified
CPT/HCPCS: 36415; 73070; 80048; 85380; 85652; 86140